=== PATIENT | male | born 1940 | race African-American/Black ===

== ENCOUNTER 2017-03-14 04:13 | Emergency (ER) | payer OTHER ==
[~2017-03-14] VITALS: Ht 185.4 cm; Wt 113.4 kg
[~2017-03-14 04:13] MED LIST: ASPIRIN EC81 M1; FISH OIL 1,001000 M1 PO; LISINOPRIL20 MG PO; NIACIN 500 MG500 M1 PO; VITAMIN D400 UNI1 PO
[2017-03-14] MEDS ORDERED: VALIUM5 MG PO (05:31)
[2017-03-14] MEDS ORDERED: NORCO 5-325 TA1 EACH PO (05:31)
[2017-03-14 06:01] VITALS: BP 156/74
== END 2017-03-14 06:02 | disposition home or self-care (01) ==
LOC: ER 04:13
DX: M54.41 Lumbago with sciatica, right side (principal); I10 Essential (primary) hypertension; I25.2 Old myocardial infarction; Z95.5 Presence of coronary angioplasty implant and graft; Z86.79 Personal history of other diseases of the circulatory system

== ENCOUNTER 2017-07-22 18:21 | Inpatient (IN) | payer OTHER ==
[~2017-07-22] VITALS: Ht 154.9 cm; Wt 104.3 kg
--- NOTE | ~2017-07-22 | EKG ---
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
--- NOTE | ~2017-07-22 | 2DMMODE ---
[facility] [address] [place] [address] 2 D/M-MODE ECHOCARDIOGRAM Name: CANDELARIA DSOUZA JR Room #: 459-P [facility] IN .R.#: [id number] Admission: 07/22/17 Attend Phys: Vel Gil, Discharge: Date of : 44 Date of Service: 07/23/17 0924 Report #: [id number] THIS REPORT FOR: //name// APPROVED REPORT Study performed: 07/23/2017 08:31:49 EXAM: Comprehensive 2D, Doppler, and color-flow Echocardiogram Patient Location: Echo lab Room #: [facility] Status: routine BSA: 2.28 BP: 150/74 mmHg Other Information Study Quality: Adequate Indications CVA/TIA CAD Hypertension/HDD Echo Enhancing Agent Indication: Rule out Shunt Agent(s) / Amount(s) Used: Agitated Saline 8 cc 2D Dimensions RVDd: 31.83 mm LVEF(%): 61.96 (>50%) IVSd: 14.84 (7-11mm) LVOT Diam: 20.65 (18-24mm) LVDd: 44.49 mm PWd: 14.25 (7-11mm) Ascending Ao: 28.54 (22-36mm) LVDs: 29.73 (25-40mm) Aortic Root: 31.61 mm IVC: 15.00 mm Tipton's LVEF: 61.96 % Volumes Left Atrial Volume (Systole) Single Plane 4CH: 52.13 mL Single Plane 2CH: 73.71 mL LA ESV Index: 30.00 mL/m2 Aortic Valve AoV Peak Paolo.: 1.33 m/s AO Peak Gr.: 7.03 mmHg [facility] [address] [address] 2 D/M-MODE ECHOCARDIOGRAM Name: MEETCANDELARIA Room #: 459-P [facility] IN [facility].#: [id number] Admission: 07/22/17 Attend Phys: Vel Gil, Discharge: Date of : 44 Date of Service: 07/23/17 0924 Report #: [id number] Mitral Valve E/A Ratio: 0.9 MV Decel. Time: 280.79 ms MV E Max Paolo.: 0.70 m/s MV A Paolo.: 0.82 m/s MV PHT: 81.43 ms IVRT: 141.87 ms Pulmonary Valve PV Peak Paolo.: 0.94 m/s PV Peak Gr.: 3.53 mmHg Pulmonary Vein P Vein S: 0.52 m/s P Vein A: 0.29 m/s P Vein D: 0.42 m/s P Vein A Dur.: 96.9 msec P Vein S/D Ratio: 1.24 Tricuspid Valve RAP Estimate: 5.00 mmHg Left Ventricle The left ventricle is normal size. Moderate concentric left ventricular hypertrophy. The left ventricular systolic function is normal. The left ventricular ejection fraction is within the normal range. LVEF is 60%. Mild diastolic dysfunction is present (impaired relaxation pattern). Right Ventricle The right ventricle is normal size. The right ventricular systolic function is normal. Atria Left atrium is mildly dilated. Injection of bubbles documented no interatrial shunt. Right atrium is at the upper limits of normal. Aortic Valve The aortic valve is normal in structure. Trace aortic regurgitation. There is no aortic valvular stenosis. Mitral Valve The mitral valve is normal in structure. Trace to mild mitral regurgitation. No evidence of mitral valve stenosis. Tricuspid Valve The tricuspid valve is normal in structure. Trace tricuspid regurgitation. Unable to assess PA pressure. [facility] [address] [place] [address] 2 D/M-MODE ECHOCARDIOGRAM Name: MEETCANDELARIA Room #: 459-P [facility] IN .R.#: [id number] Admission: 07/22/17 Attend Phys: Vel Gil, Discharge: Date of : 42 Date of Service: 07/23/17 0924 Report #: [id number] Pulmonic Valve The pulmonary valve is normal in structure. Mild pulmonic regurgitation. Great Vessels The aortic root is normal in size. IVC is normal in size and collapses >50% with inspiration. <Conclusion> The left ventricle is normal size. LVEF is 60%. Left atrium is mildly dilated. Injection of bubbles documented no interatrial shunt. Right atrium is at the upper limits of normal. The aortic valve is normal in structure. Trace aortic regurgitation. The mitral valve is normal in structure. Trace to mild mitral regurgitation. The tricuspid valve is normal in structure. Trace tricuspid regurgitation. Unable to assess PA pressure. The pulmonary valve is normal in structure. Mild pulmonic regurgitation. <ELECTRONICALLY SIGNED> By: Hany Garcia MD 07/23/17923 3 3 Hany Garcia MD /INF
[~2017-07-22 18:21] MED LIST changes: -ASPIRIN EC81 M1; +ASPIRIN EC81 M1 PO; +NORCO 5-325 TA1 EACH PO; +VALIUM5 MG PO; +VITAMIN D1000 UNI1 PO; -VITAMIN D400 UNI1 PO
[2017-07-22 18:25] VITALS: BP 189/77
[2017-07-22 18:49] LABS: ABSOLUTE NEUTROPHILS 4.4 thou/uL (1.4-8.2); EOSINOPHILS 3.1 % (0.0-3.0); HEMATOCRIT 44.2 % (42.0-52.0); HEMOGLOBIN 14.3 gm/dL (14.0-18.0); LYMPHOCYTES 39.5 % (24.0-44.0); MCH 27.5 pg (26.0-34.0); MCHC 32.5 g/dL (28.0-37.0); MCV 84.7 fL (80.0-100.0); MONOCYTES 6.8 % (1.0-8.0); PLATELET COUNT 219 thou/uL (150-400); POLYS 49.6 % (36.0-66.0); RBC 5.22 mil/uL (4.50-6.00); RDW 15.1 % (10.5-14.5); WBC 8.8 thou/uL (4.0-11.0)
[2017-07-22 18:51] LABS: MANUAL DIFF NO
[2017-07-22 18:57] LABS: ANION GAP 7 mmol/L (7-16); BUN 20 mg/dL (7-18); CALCIUM 8.8 mg/dL (8.5-10.1); CHLORIDE 106 mmol/L (98-107); CO2 26 mmol/L (21-32); CREATININE 1.6 mg/dL (0.7-1.3); GLUCOSE 114 mg/dL (74-106); POTASSIUM 4.2 mmol/L (3.5-5.1); SODIUM 139 mmol/L (136-145)
[2017-07-22 19:03] LABS: APTT 25.6 Seconds (24.5-32.8); PROTIME 10.1 Seconds (9.3-11.4)
[2017-07-22 19:05] LABS: ALBUMIN 3.6 g/dL (3.4-5.0); ALKALINE PHOSPHATASE 119 U/L (46-116); MAGNESIUM 2.2 mg/dL (1.8-2.4); SGOT 18 U/L (15-37); SGPT 19 U/L (30-65); TOTAL BILIRUBIN 0.3 mg/dL (<0.1-1.0); TOTAL PROTEIN 7.7 g/dL (6.4-8.2); TROPONIN-I < 0.04 ng/mL (<0.04-0.07)
[2017-07-22] MEDS ORDERED: PLAVIX 75 MG TA75 M1 PO (19:11)
[2017-07-22] MEDS ORDERED: POTASSIUM20 PO (19:11)
[2017-07-22] MEDS ORDERED: REPATHA SY140 MG/1 M SUBQ (19:11)
[2017-07-22] MEDS ORDERED: CO Q-10100 MG PO (19:12)
[2017-07-22] MEDS ORDERED: VITAMIN B-12500 MCG PO (19:13)
[2017-07-22] MEDS ORDERED: VITAMIN B COMP1 EACH PO (19:13)
[2017-07-22 20:33] LABS: CHOLESTEROL 180 mg/dL (<200); HDL CHOLESTEROL 32 mg/dL (>40); LDL CHOLESTEROL 103 mg/dL (<100); TC:HDL 5.6 Ratio (Not establshd); TRIGLYCERIDE 228 mg/dL (<150); VLDL 46 mg/dL (<40)
[2017-07-22 21:30] VITALS: BP 163/82
[2017-07-22 21:32] LABS: TSH 2.041 uIU/mL (0.358-3.740)
[2017-07-22 21:52] VITALS: BP 178/83
[2017-07-23] VITALS: BP 160/75
[2017-07-23 05:40] VITALS: BP 147/70
[2017-07-23 06:34] LABS: HEMATOCRIT 41.2 % (42.0-52.0); HEMOGLOBIN 13.2 gm/dL (14.0-18.0); MCH 27.3 pg (26.0-34.0); MCHC 31.9 g/dL (28.0-37.0); MCV 85.4 fL (80.0-100.0); RBC 4.82 mil/uL (4.50-6.00); RDW 14.9 % (10.5-14.5)
[2017-07-23 06:43] LABS: CALCIUM 8.2 mg/dL (8.5-10.1); CREATININE 1.2 mg/dL (0.7-1.3); POTASSIUM 3.5 mmol/L (3.5-5.1)
[2017-07-23 07:31] VITALS: BP 150/74
[2017-07-23 10:07] LABS: FREE T4 1.02 ng/dL (0.82-1.77)
[2017-07-23 16:42] VITALS: BP 150/74
[2017-07-24 05:11] LABS: GLYCOHEMOGLOBIN (HGB A1C) 5.6 % (4.8-5.6)
== END 2017-07-23 18:03 | disposition home or self-care (01) | DRG 391 ==
LOC: ER 18:21 → EROBS 19:17 → 4W 19:17
PROVIDERS: Emergency Medicine; Nurse Practitioner Family; Psychiatry & Neurology Neurology
DX: K57.32 Diverticulitis of large intestine without perforation or abscess without bleeding (principal); N17.0 Acute kidney failure with tubular necrosis; I10 Essential (primary) hypertension; I25.10 Atherosclerotic heart disease of native coronary artery without angina pectoris; G89.29 Other chronic pain; M54.9 Dorsalgia, unspecified; E78.5 Hyperlipidemia, unspecified; I25.2 Old myocardial infarction; Z95.5 Presence of coronary angioplasty implant and graft; Z82.49 Family history of ischemic heart disease and other diseases of the circulatory system
CPT/HCPCS: 10045

== ENCOUNTER 2017-07-24 22:18 | Inpatient (IN) | payer OTHER ==
[~2017-07-24] VITALS: Ht 185.4 cm; Wt 107.5 kg
--- NOTE | ~2017-07-24 | TEE ---
[facility] [address] [place] [address] TRANSESOPHAGEAL ECHOCARDIOGRAM Name: CANDELARIA DSOUZA Room #: 463-P [facility] IN .R.#: [id number] Admission: 07/25/17 Attend Phys: Aniceto Ramirez, Discharge: Date of : 42 Date of Service: 07/26/17912 Report #: [id number] THIS REPORT FOR: //name// APPROVED REPORT Study performed: 07/26/2017 07:57:05 EXAM: Comprehensive 2D, Doppler, and color-flow Echocardiogram Patient Location: holding Room #: 9 BSA: 2.29 HR: 83 bpm BP: 156/55 mmHg Other Information Study Quality: Excellent Indications CVA/TIA Echo Enhancing Agent Indication: Rule out Shunt Agent(s) / Amount(s) Used: Agitated Saline 7 cc Procedure After obtaining informed consent, patient underwent transesophageal echo in the [facility]. Type of Sedation : Conscious Sedation Sedation was administered by Jaye Kan RN. Sedation start time: 802 Case end Time: 809 Versed (4 mg) Fentanyl (25 mcg) Transesophageal probe was inserted and advanced into esophagus without difficulty by Dameon Abreu MD, FACC. Echo enhancement indication: R/O Septal defect. Echo enhancement agent administered: Agitated Saline The MOUNIKA was performed without complications. Throughout the procedure, the blood pressure, pulse oximetry, cardiac rhythm, and rate were monitored. The patient tolerated the procedure without adverse effects. Recovery from conscious sedation was uneventful and vital signs were stable. Left Ventricle The left ventricle is normal size. There is normal LV segmental wall [facility] [address] [place] [address] TRANSESOPHAGEAL ECHOCARDIOGRAM Name: MEETCANDELARIA Room #: 463-P [facility] IN [facility]#: [id number] Admission: 07/25/17 Attend Phys: Aniceto Ramirez, Discharge: Date of : 42 Date of Service: 07/26/17 0913 Report #: [id number] motion. Moderate concentric left ventricular hypertrophy. The left ventricular systolic function is normal. The left ventricular ejection fraction is within the normal range. no thrombus or smoke in LV or JESUS LVEF is 60%. Right Ventricle The right ventricle is normal size. The right ventricular systolic function is normal. Atria Left atrium is dilated. negative bubble contrast study for ASD, PFO, negative with cough Right atrium is at the upper limits of normal. Aortic Valve The aortic valve is normal in structure. No aortic regurgitation is present. none There is no aortic valvular stenosis. Mitral Valve The mitral valve is normal in structure. Mild mitral regurgitation. none No evidence of mitral valve stenosis. Tricuspid Valve The tricuspid valve is normal in structure. There is trace to mild tricuspid regurgitation. none Pulmonic Valve The pulmonary valve is normal in structure. There is no pulmonic valvular regurgitation. none Great Vessels The aortic root is normal in size. there is moderate calcified aortic debris IVC is normal in size and collapses >50% with inspiration. Pericardium There is no pericardial effusion. <Conclusion> no thrombus or smoke in LV or JESUS There is normal LV segmental wall motion. LVEF is 60%. Left atrium is dilated. There is no aortic valvular stenosis. No aortic regurgitation is present. [facility] [place] [address] TRANSESOPHAGEAL ECHOCARDIOGRAM Name: MEETCANDELARIA Room #: 463-P [facility] IN M.R.#: [id number] Admission: 07/25/17 Attend Phys: Aniceto Ramirez, Discharge: Date of : 42 Date of Service: 07/26/17912 Report #: [id number] there is moderate calcified aortic debris negative bubble contrast study for ASD, PFO, negative with cough <ELECTRONICALLY SIGNED> By: Dameon Abreu MD, FACC 07/26/17912 2 2 Dameon Abreu MD, FACC /INF
--- NOTE | ~2017-07-24 | EKG ---
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[place] : 1940 Requested By: Colin Garza Order Number: [id number] MD: Huber Ramirez Measurements Intervals [place] Rate: 72 P: 35 VT: 164 QRS: 6 QRSD: 92 T: 29 QT: 417 QTc: 457 Interpretive Statements Sinus rhythm Abnormal R-wave progression, early transition Compared to ECG 07/22/2017 18:59:14 Repolarization abnormality is less pronounced Electronically Signed On 07-25-2017 8:12:06 CDT by Huber Ramirez [email or web address] <ELECTRONICALLY SIGNED> By: Huber Ramirez MD, [facility] 07/25/17 0812 2245 2245 Huber Ramirez MD, [facility] /EPI
[~2017-07-24 22:18] MED LIST changes: +CO Q-10100 MG PO; +PLAVIX 75 MG TA75 M1 PO; +POTASSIUM20 PO; +REPATHA SY140 MG/1 M SUBQ; +VITAMIN B COMP1 EACH PO; +VITAMIN B-12500 MCG PO
[2017-07-24 22:19] VITALS: BP 209/98
[2017-07-24 23:15] LABS: HEMATOCRIT 42.4 % (42.0-52.0); MCH 27.7 pg (26.0-34.0); MCHC 32.9 g/dL (28.0-37.0); RBC 5.05 mil/uL (4.50-6.00); RDW 15.1 % (10.5-14.5); WBC 8.2 thou/uL (4.0-11.0)
[2017-07-24 23:22] LABS: ANION GAP 7 mmol/L (7-16); BUN 22 mg/dL (7-18); CALCIUM 8.6 mg/dL (8.5-10.1); CHLORIDE 107 mmol/L (98-107); CO2 26 mmol/L (21-32); CREATININE 1.6 mg/dL (0.7-1.3); GLUCOSE 108 mg/dL (74-106); POTASSIUM 4.1 mmol/L (3.5-5.1); SODIUM 140 mmol/L (136-145)
[2017-07-24 23:30] LABS: TROPONIN-I < 0.04 ng/mL (<0.04-0.07)
[2017-07-25 03:28] VITALS: BP 137/71
[2017-07-25 04:20] VITALS: BP 166/96
[2017-07-25 08:57] VITALS: BP 132/76
[2017-07-25 12:20] VITALS: BP 147/78
[2017-07-25 20:43] VITALS: BP 154/82
[2017-07-26 05:20] VITALS: BP 161/82
[2017-07-26 10:02] VITALS: BP 140/68
[2017-07-26 10:45] LABS: HEMOGLOBIN 13.6 gm/dL (14.0-18.0); MCH 27.2 pg (26.0-34.0); MCHC 32.3 g/dL (28.0-37.0); MCV 84.3 fL (80.0-100.0); RBC 4.99 mil/uL (4.50-6.00); RDW 15.1 % (10.5-14.5); WBC 7.3 thou/uL (4.0-11.0)
[2017-07-26 10:56] LABS: CALCIUM 8.3 mg/dL (8.5-10.1); CREATININE 1.3 mg/dL (0.7-1.3); POTASSIUM 3.5 mmol/L (3.5-5.1)
[2017-07-26 14:24] VITALS: BP 140/68
[2017-07-26] MEDS ORDERED: FLAGYL500 MG PO (15:07)
[2017-07-26] MEDS ORDERED: CIPRO500 MG PO (15:07)
[2017-07-26 15:23] VITALS: BP 140/68
== END 2017-07-26 16:17 | disposition home or self-care (01) | DRG 304 ==
LOC: ER 22:18 → EROBS 07-25 01:15 → 4W 07-25 01:15
PROVIDERS: Emergency Medicine; Internal Medicine
DX: I16.0 Hypertensive urgency (principal); N17.0 Acute kidney failure with tubular necrosis; G45.9 Transient cerebral ischemic attack, unspecified; K57.92 Diverticulitis of intestine, part unspecified, without perforation or abscess without bleeding; I10 Essential (primary) hypertension; I25.10 Atherosclerotic heart disease of native coronary artery without angina pectoris; E78.5 Hyperlipidemia, unspecified; G89.29 Other chronic pain; M54.9 Dorsalgia, unspecified; Z79.82 Long term (current) use of aspirin; Z79.899 Other long term (current) drug therapy; I25.2 Old myocardial infarction; Z95.5 Presence of coronary angioplasty implant and graft; Z80.3 Family history of malignant neoplasm of breast; Z82.49 Family history of ischemic heart disease and other diseases of the circulatory system; Z82.3 Family history of stroke
CPT/HCPCS: 10045

== ENCOUNTER 2020-05-31 14:32 | Inpatient (IN) | payer OTHER ==
[~2020-05-31] VITALS: Ht 185.4 cm; Wt 109.6 kg
--- NOTE | ~2020-05-31 | HC ---
[facility] [place] [address] CONSULTATION Name: CANDELARIA DSOUZA JR Room #: 250-P [facility] IN M.R.#: [id number] Admission: 05/31/20 Attend Phys: Aniceto Ramirez MD Discharge: Date of : 42 Report #: [id number] THIS REPORT FOR: cc: TRAVIS BLANCO MD, David Arenas MD, MD ~ CC: Malcolm BLANCO DATE OF SERVICE: 06/02/2020 HISTORY OF PRESENT ILLNESS: The patient is a 79-year-old right-handed -Swedish male who was admitted with dysarthria, right-sided weakness, problems with walking. CTA showed left proximal internal carotid artery stenosis, noted to be severe with waxing and waning of symptoms. Neurology was closely involved and Vascular Surgery was brought in and the patient underwent an emergent left carotid endarterectomy with patch closure on 06/01/2020. He is currently in the ICU and blood pressure is being monitored. He feels like the right side is moving well. I am seeing him in rehabilitation medicine consultation. PAST MEDICAL HISTORY: Includes hypertension, coronary artery disease, hyperlipidemia, CT on , cardiac stents x 3, chronic back pain, CVA. He notes he has had 2 prior CVAs in 2018 with involvement of the right upper extremity with overall improvement in recovery. MEDICATIONS: Please see the full medication listing. ALLERGIES: STATINS. SOCIAL HISTORY: , lives with his , [address]-mered[address] house, 1-2 steps in. The bedrooms are upstairs. His is retired. He did not utilize gait aids prior to admission. REVIEW OF SYSTEMS: No current complaints of chest pain, shortness of breath or abdominal discomfort. PHYSICAL EXAMINATION: GENERAL: He is a pleasant 79-year-old -Swedish male in no obvious distress. VITAL SIGNS: Temperature 37.1, pulse 77, respirations 22, blood pressure 150/64. He was seen in the intensive care unit. Currently has nasal prong O2 in place. HEENT: Facies appeared symmetric. EOMs are full. [facility] [address] [place] [address] CONSULTATION Name: CANDELARIA DSOUZA Room #: 250-P [facility] IN .R.#: [id number] Admission: 05/31/20 Attend Phys: Aniceto Ramirez MD Discharge: Date of : 42 Report #: [id number] NEUROLOGIC: He is conversant, follows basic commands. No obvious problems with word formation. Right upper extremity has an IV with an IV board in place, which limits the examination . He appears to have least grade 4- to 3+/5 strength of the right upper extremity and again it was somewhat difficult to fully assess. I could not detect any obvious sensation decreased with simultaneous stimulation. He has full range of motion. Strength of the left upper extremity and left lower extremity. Right lower extremity, no obvious focal weakness. He can dorsiflex both ankles. No focal sensory decrease with simultaneous stimulation. Tone appeared to be intact. He has not gotten up with therapies as of yet, but the nursing noted that when he sat on the edge of the bed he tended to have a right-sided lean. ASSESSMENT: A 79-year-old right-handed -Swedish male with the following problem list: 1. Cerebrovascular accident with severe left proximal internal carotid artery stenosis, status post left carotid endarterectomy with patch closure, 06/01/2020. 2. Right-sided weakness with some dysarthria that appears overall improved. He was noted to have some balance decrease with falling to the right per nursing. 3. Hypertension. He has been on a nicardipine drip. 4. Hyperlipidemia noted to be statin intolerant. 5. Coronary artery disease. 6. Prior history of 2 CVAs with good recovery. 7. History of myocardial infarction. 8. Cardiac stents x 3. 9. Chronic back pain. PLAN: He is currently in the ICU, being monitored closely. PT, OT and speech are to evaluate. He certainly may warrant a short acute in-hospital inpatient rehabilitation stay as he further medically stabilizes. We will need to see how he does and proceed from there. Thank you for asking us to assist in this patient's care. By: 1152 1426 David Florentino MD /PATRICIA
[~2020-05-31 14:32] MED LIST changes: +ASPIRIN325 PO; +CIPRO500 MG PO; -FISH OIL 1,001000 M1 PO; +FISH OIL 1,001000 M3 PO; +FLAGYL500 MG PO; +GEMFIBROZIL 60600 M1 PO; +LEVETIRACETAM250 MG PO; +METOPROLOL TART25 MG PO; +NORVASC10 MG PO
[2020-05-31 14:33] VITALS: BP 170/70
[2020-05-31 15:24] LABS: ABSOLUTE NEUTROPHILS 4.9 thou/uL (1.4-8.2); BASOPHILS 1.1 % (0.0-2.0); EOSINOPHILS 3.6 % (0.0-3.0); HEMOGLOBIN 14.2 gm/dL (14.0-18.0); LYMPHOCYTES 24.5 % (24.0-44.0); MCH 28.1 pg (26.0-34.0); MCHC 33.1 g/dL (28.0-37.0); MCV 84.8 fL (80.0-100.0); MONOCYTES 6.2 % (1.0-8.0); PLATELET COUNT 210 thou/uL (150-400); POLYS 64.6 % (36.0-66.0); RBC 5.07 mil/uL (4.50-6.00); RDW 15.1 % (10.5-14.5); WBC 7.6 thou/uL (4.0-11.0)
[2020-05-31 15:37] LABS: ANION GAP 9 mmol/L (7-16); APTT 23.8 Seconds (24.5-32.8); BUN 18 mg/dL (7-18); CALCIUM 8.3 mg/dL (8.5-10.1); CHLORIDE 107 mmol/L (98-107); CO2 24 mmol/L (21-32); CREATININE 1.2 mg/dL (0.7-1.3); GLUCOSE 98 mg/dL (74-106); POTASSIUM 5.8 mmol/L (3.5-5.1); PROTIME 10.6 Seconds (9.3-11.4); SODIUM 140 mmol/L (136-145)
[2020-05-31 15:48] LABS: ALBUMIN 3.6 g/dL (3.4-5.0); SGOT 38 U/L (15-37); SGPT 31 U/L (30-65); TOTAL BILIRUBIN 0.5 mg/dL (0.2-1.0); TOTAL PROTEIN 7.5 g/dL (6.4-8.2); TROPONIN-I <0.06 ng/mL (<0.06)
[2020-05-31 18:42] LABS: HEMATOCRIT 43.2 % (42.0-52.0); HEMOGLOBIN 13.9 gm/dL (14.0-18.0); MCH 27.5 pg (26.0-34.0); MCHC 32.1 g/dL (28.0-37.0); MCV 85.6 fL (80.0-100.0); RBC 5.04 mil/uL (4.50-6.00); RDW 15.1 % (10.5-14.5); WBC 8.6 thou/uL (4.0-11.0)
[2020-05-31 20:04] LABS: ALBUMIN 3.7 g/dL (3.4-5.0); TOTAL PROTEIN 7.5 g/dL (6.4-8.2)
[2020-05-31 20:24] LABS: TSH 1.248 uIU/mL (0.358-3.740)
[2020-05-31] MEDS ORDERED: ZANAFLEX4 M2 PO (21:44)
[2020-05-31] MEDS ORDERED: LISINOPRIL PO (21:46)
[2020-05-31] MEDS ORDERED: LOPRESSOR50 MG PO (21:49)
[2020-05-31] MEDS ORDERED: FLOMAX0.4 MG PO (21:50)
[2020-05-31] MEDS ORDERED: ASA81BEC PO (21:51)
[2020-05-31] MEDS ORDERED: VITAMIN B-121000 MC2 PO (21:53)
[2020-06-01] VITALS (14 sets, daily range): BP systolic 103–147; BP diastolic 41–68
[2020-06-01 00:32] LABS: HEMATOCRIT 43.3 % (42.0-52.0); HEMOGLOBIN 14.2 gm/dL (14.0-18.0); MCH 27.9 pg (26.0-34.0); MCHC 32.7 g/dL (28.0-37.0); MCV 85.3 fL (80.0-100.0); RBC 5.07 mil/uL (4.50-6.00); RDW 15.1 % (10.5-14.5); WBC 9.6 thou/uL (4.0-11.0)
[2020-06-01 00:49] LABS: CREATININE 1.2 mg/dL (0.7-1.3); MAGNESIUM 1.7 mg/dL (1.8-2.4)
[2020-06-01 00:55] LABS: POTASSIUM 3.8 mmol/L (3.5-5.1)
[2020-06-01] MEDS ORDERED: REPATHA SU140 MG/1 M SUBQ (07:25)
--- NOTE | 2020-06-01 07:40 | EKG ---
[facility] [place] [address] ELECTROCARDIOGRAM REPORT Name: CANDEALRIA DSOUZA JR Room #: 170-10 ADM IN M.R.#: [id number] Admission: 05/31/20 Attend Phys: Aniceto Ramirez MD Discharge: Date of : 42 Report #: [id number] THIS REPORT FOR: cc: TRAVIS BLANCO MD, STACY C. 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: : 1940 Requested By: Colin Garza Order Number: [id number] MD: Huber Ramirez Measurements Intervals [place] Rate: 85 P: 62 GA: 170 QRS: 27 QRSD: 90 T: 35 QT: 383 QTc: 456 Interpretive Statements Sinus rhythm Abnormal R-wave progression, early transition Compared to ECG 09/06/2017 14:51:40 Atrial premature complex(es) no longer present ST (T wave) deviation no longer present Electronically Signed On 06-01-2020 7:40:04 CDT by Huber Ramirez [email or web address] <ELECTRONICALLY SIGNED> By: Huber Ramirez MD, FAC 06/01/20 0740 1459 1459 Huber Ramirez MD, FAC /EPI
--- NOTE | 2020-06-01 14:41 | 2DMMODE ---
[facility] [address] [place] [address] 2 D/M-MODE ECHOCARDIOGRAM Name: CANDELRAIA DSOUZA Room #: 250-P ADM IN M.R.#: [id number] Admission: 05/31/20 Attend Phys: Aniceto Ramirez MD Discharge: Date of : 42 Report #: [id number] THIS REPORT FOR: cc: TRAVIS BLANCO MD, STACY C. MD Lammoglia, Francisco J. MD ~ APPROVED REPORT Study performed: 06/01/2020 13:44:54 EXAM: Comprehensive 2D, Doppler, and color-flow Echocardiogram Patient Location: ICU Room #: 250 Status: routine BSA: 2.35 HR: 62 bpm BP: 135/58 mmHg Rhythm: NSR Other Information Study Quality: Adequate Indications Stroke. Hx: CABG, Stents, CVAx2, PVD, HTN, HLP. Echo Enhancing Agent Indication: Rule out Shunt Agent(s) / Amount(s) Used: Agitated Saline 7 cc 2D Dimensions RVDd: 34.93 mm IVSd: 12.00 (7-11mm) LVOT Diam: 22.35 (18-24mm) LVDd: 44.71 mm PWd: 10.61 (7-11mm) Ascending Ao: 30.16 (22-36mm) LVDs: 32.33 (25-40mm) Aortic Root: 35.73 mm Volumes Left Atrial Volume (Systole) Single Plane 4CH: 46.65 mL Single Plane 2CH: 58.96 mL LA ESV Index: 26.00 mL/m2 Aortic Valve [facility] [address] [place] [address] 2 D/M-MODE ECHOCARDIOGRAM Name: CANDELARIA DSOUZA JR Room #: 250-P [facility] IN .R.#: [id number] Admission: 05/31/20 Attend Phys: Aniceto Ramirez, Discharge: Date of : 42 Report #: [id number] AoV Peak Paolo.: 1.44 m/s AO Peak Gr.: 8.32 mmHg LVOT Max P.22 mmHg LVOT Max V: 0.90 m/s RADHA Vmax: 2.44 cm2 Mitral Valve E/A Ratio: 0.9 MV Decel. Time: 253.97 ms MV E Max Paolo.: 0.66 m/s MV A Paolo.: 0.74 m/s MV PHT: 73.65 ms IVRT: 78.43 ms Pulmonary Valve PV Peak Paolo.: 0.84 m/s PV Peak Gr.: 2.79 mmHg Pulmonary Vein P Vein S: 0.50 m/s P Vein D: 0.40 m/s P Vein S/D Ratio: 1.25 Tricuspid Valve TR Peak Paolo.: 2.61 m/s RAP Estimate: 5.00 mmHg TR Peak Gr.: 27.30 mmHg PA Pressure: 32.00 mmHg Left Ventricle The left ventricle is normal size. There is normal LV segmental wall motion. Mild concentric left ventricular hypertrophy. Left ventricular systolic function is normal. LVEF is 60-65%. Mild diastolic dysfunction is present (impaired relaxation pattern). Right Ventricle The right ventricle is normal size. The right ventricular systolic function is normal. Atria The left atrium size is normal. No shunting noted by contrast bubble injection. The right atrium size is normal. Aortic Valve Aortic valve is mildly thickened and calcified. No aortic regurgitation is present. There is no aortic valvular stenosis. [facility] [address] [place] [address] 2 D/M-MODE ECHOCARDIOGRAM Name: CANDELARIA DSOUZA Room #: 250-P [facility] IN ..#: [id number] Admission: 05/31/20 Attend Phys: Aniceto Ramirez, Discharge: Date of : 42 Report #: [id number] Mitral Valve The mitral valve is normal in structure. Mild mitral regurgitation. Tricuspid Valve The tricuspid valve is normal in structure. Trace tricuspid regurgitation. Estimated PAP is 30-35mmHg. Pulmonic Valve The pulmonary valve is normal in structure. Mild pulmonic regurgitation. Great Vessels The aortic root is normal in size. The ascending aorta is normal in size. IVC is normal in size and collapses >50% with inspiration. Pericardium There is no pericardial effusion. <Conclusion> The left ventricle is normal size. LVEF is 60-65%. Aortic valve is mildly thickened and calcified. The mitral valve is normal in structure. Mild mitral regurgitation. The tricuspid valve is normal in structure. Trace tricuspid regurgitation. Estimated PAP is 30-35mmHg. Mild pulmonic regurgitation. There is no pericardial effusion. No shunting noted by contrast bubble injection. <ELECTRONICALLY SIGNED> By: Hany Garcia MD 06/01/20 1441 144 144 Hany Garcia MD /INF
[2020-06-01] MEDS ORDERED: VITCB500GO PO (14:43)
--- NOTE | 2020-06-01 18:41 | HC ---
[facility] [place] [address] [place] [address] CONSULTATION Name: CANDELARIA DSOUZA JR Room #: 250-P ADM IN M.R.#: [id number] Admission: 05/31/20 Attend Phys: Aniceto Ramirez MD Discharge: Date of : 42 Report #: [id number] THIS REPORT FOR: cc: TRAVIS BLANCO MD, Nathaniel Greene MD, MD ~ CC: Malcolm BLANCO DATE OF SERVICE: 05/31/2020 HISTORY OF PRESENT ILLNESS: This is a 79-year-old male patient on whom a consultation was called by Emergency Room physician, Dr. Murguia. He had mentioned that this patient had come to Emergency Room with the right sided weakness and some speech difficulty, which started yesterday. After talking to him on the phone, I came to Emergency Room and saw the patient. The provided somewhat of a confusing history. She indicated that this patient had 3 strokes. They were all on the right side. He had never had a stroke on the left side. He was diagnosed with an aneurysm. History is confusing. Apparently, the aneurysm was on the left side. He was going to a neurosurgeon at [facility] and a neurologist at [facility]. Somebody did a catheter angiogram, but other person told him not to have a catheter angiogram again. That makes the history very confusing, but the patient was on aspirin and Plavix. The patient was seen by Dr. Street, a neurologist. I pulled out those records. It looks like the patient did have strokes that time. The patient is in sinus rhythm, but I do not know what part of workup he has for any atrial fibrillation as an outpatient. He was also seen by Dr. Callaway, another neurologist around the same time. He has been on Keppra, he really does not know why he is on Keppra, but looks like he had some episodes which indicated that there may have been a stroke and that is why they started this patient, but that is a guess work, I am not sure about that. Now, this patient did have a CTA of the head and neck in 2017 and that did not show any prominent stenosis of the carotid at that time. Stenosis is less than 50%. REVIEW OF SYSTEMS: Also positive for multiple problems in this patient. This patient has a history of hypertension, coronary artery disease, hyperlipidemia. He has a history of stroke, history of pilonidal cyst, history of cardiac stents. That was a relevant 14-point review of system. PAST MEDICAL HISTORY: Positive for strokes. SOCIAL HISTORY: He is and his was here who provided most of the history. [facility] [address] [place] [address] CONSULTATION Name: MEETCANDELARIA Room #: 250-P [facility] IN M.R.#: [id number] Admission: 05/31/20 Attend Phys: Aniceto Ramirez MD Discharge: Date of : 42 Report #: [id number] PHYSICAL EXAMINATION: Indicate he is alert, he is responsive. He can follow simple command. His speech looks somewhat slurred, but the indicated it is better. He is weak on the right side, but strength is about 4/5 at least. He has intact position sense on both sides. There is no cerebellar sign. Cardiac examinations appear unremarkable. His vital signs were blood pressure 161/72, respirations 16, pulse is 75. LABORATORY DATA: Indicate a white count of 8.6. I had been asked by Emergency Room physician to get a CT angiogram done with a stroke protocol CT if the BUN and creatinine were okay, and he did for that CT angiogram. That indicated a near occlusion of the left carotid artery. IMPRESSION: This patient's symptoms appear to be consistent with ischemia from his occluded or almost occluded left internal carotid artery. The radiologist thinks it may be a thrombus. Because of that, my recommendation to the Emergency Room physician was to emergently transfer this patient to a tertiary care center like [facility] to evaluate this patient for emergent intervention. He may need an MRI, but that can be done up there. Dr. Murguia, the Emergency Room physician told me that he is already working to emergently transfer this patient to a tertiary care center and I believe that is the best route in this patient. Thank you very much for this referral, and if you have any questions, please feel free to contact me. <ELECTRONICALLY SIGNED> By: Nathaniel Olmos MD 06/01/20 1841 194 08 Nathaniel Olmos MD /nt
[2020-06-02] VITALS (17 sets, daily range): BP systolic 104–152; BP diastolic 44–62
[2020-06-02 06:06] LABS: CALCIUM 7.5 mg/dL (8.5-10.1); CREATININE 1.6 mg/dL (0.7-1.3); POTASSIUM 3.6 mmol/L (3.5-5.1)
[2020-06-02 06:08] LABS: HEMATOCRIT 40.3 % (42.0-52.0); MCH 27.6 pg (26.0-34.0); MCHC 32.3 g/dL (28.0-37.0); MCV 85.5 fL (80.0-100.0); RBC 4.72 mil/uL (4.50-6.00); RDW 15.2 % (10.5-14.5); WBC 10.3 thou/uL (4.0-11.0)
[2020-06-02 12:23] LABS: BE(vivo) -2.4 mmol/L (-2 to +3); HCO3 21.1 mmol/L (22.0-26.0); PCO2 32.5 mmHg (35.0-45.0); PO2 55.7 mmHg (80.0-100.0); sO2 90.2 % (92.0-98.0)
[2020-06-03 00:19] VITALS: BP 123/57
[2020-06-03 04:06] VITALS: BP 133/71
[2020-06-03 05:27] LABS: BE(vivo) -3.2 mmol/L (-2 to +3); HCO3 19.9 mmol/L (22.0-26.0); PCO2 29.8 mmHg (35.0-45.0); pH 7.442 (7.360-7.450); sO2 93.5 % (92.0-98.0)
[2020-06-03 07:27] VITALS: BP 117/59
[2020-06-03 11:17] VITALS: BP 113/65
[2020-06-03] MEDS ORDERED: PEPCID20 MG PO (11:39)
[2020-06-03] MEDS ORDERED: AMLODIPINE BESY10 MG PO (11:39)
[2020-06-03] MEDS ORDERED: GEMFIBROZIL 60600 M1 PO (11:46)
[2020-06-03 12:24] LABS: CALCIUM 7.9 mg/dL (8.5-10.1); CREATININE 1.4 mg/dL (0.7-1.3); POTASSIUM 3.7 mmol/L (3.5-5.1)
[2020-06-03 15:12] VITALS: BP 122/62
--- NOTE | 2020-06-03 18:06 | PATH ---
[facility] [address] [place] [address] PATHOLOGY RPT PROCEDURE Name: CHRIS AVERY Room #: 214-P [facility] IN M.R.#: [id number] Admission: 05/31/20 Date of : 42 Discharge: 06/03/20 Report #: [id number] Path Case #: [id number] L[facility] Accession Number: [id number] . 01 Material submitted: . carotid body - LEFT CAROTID ARTERY PLAQUE. Modifiers: left . 01 Clinical history: . Left carotid artery disease . 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 - Fragment of calcified atherosclerotic plaque. (IUV:pit 06/03/2020) QTP 06/03/2020 1350 Local . 02 Electronically signed: . Celi Maddox MD, Pathologist NPI- [id number] . 01 Gross description: . The specimen is received in formalin, labeled "Chris Avery Jr, left carotid artery plaque" and consists of multiple rubbery to calcified segments of yellow-gay tissue measuring 4.5 x 2.8 x 1.2 cm in aggregate. Time Piece Repairer sections are submitted in A1 following light decalcification. (SDY; 06/02/2020) SYU/SYU 06/02/2020 1747 Local . 02 Pathologist provided ICD-10: I65.22 . 02 CPT . 144210, [id number] Specimen Comment: A courtesy copy of this report has been sent to [phone], [phone] Specimen Comment: [phone], Specimen Comment: Report sent to ,DR BLANCO / DR OBRIEN Performed at: [address], [place] [id number] MD Fredrick Hoover MD Phone: [phone] Performed at: [address] [id number] MD Celi Maddox MD Phone: [phone]
--- NOTE | 2020-06-04 12:41 | HC ---
[facility] [place] [address] CONSULTATION Name: CANDELARIA DSOUZA JR Room #: 214-P [facility] IN M.R.#: [id number] Admission: 05/31/20 Attend Phys: Aniceto Ramirez MD Discharge: 06/03/20 Date of : 42 Report #: [id number] THIS REPORT FOR: cc: TRAVIS BLANCO MD, STACY C. MD Forman, John M. MD ~ CC: Malcolm BLANCO DATE OF SERVICE: 06/01/2020 We were asked by Dr. Kenneth Olmos to see the patient. HISTORY OF PRESENT ILLNESS: The patient is a 79-year-old with neurologic change. The patient came to the Emergency Department yesterday with speaking problems. The patient is able to form words, but cannot seem to find the right words and has difficulty putting speech together. He also reports having some numbness in the right lower extremity. The patient has a history of transient ischemic attacks in the past and had a carotid duplex in this institution in 2017 that showed a 50% left internal carotid stenosis, but this was not felt to be hemodynamically significant. Since the Emergency Department visit, a CT angiogram was done that shows a 99% stenosis of the proximal left internal carotid. There does appear to be flow beyond this. Also MR angiogram was done that shows normal intracranial vessels. There is some history that the patient is followed by Dr. Shay [facility] for an aneurysm, but no aneurysm was seen on either our CTA or the MRA. PAST HISTORY: Also significant for hypertension and coronary artery disease with stents placed in the past. ALLERGIES: The patient seems to be allergic to STATINS. MEDICATIONS: At home, gemfibrozil, aspirin, levetiracetam. The patient also states he is taking Plavix at home. Other medications include metoprolol, lisinopril, fish oil, Repatha, amlodipine. SOCIAL HISTORY: Tobacco history, smoker over 30 years ago. FAMILY HISTORY: Positive for hypertension. REVIEW OF SYSTEMS: CONSTITUTIONAL: Denies fever or chills. [facility] [address] [place] [address] CONSULTATION Name: CANDELARIA DSOUZA Room #: 214-P [facility] IN ..#: [id number] Admission: 05/31/20 Attend Phys: Aniceto Ramirez MD Discharge: 06/03/20 Date of : 42 Report #: [id number] EYES: Denies eye pain, visual change. HEENT: Denies sore throat, rhinorrhea. RESPIRATORY: Denies cough, shortness of breath. CARDIAC: Denies chest pain or palpitations. GASTROINTESTINAL: Denies abdominal pain, nausea, vomiting, blood. GENITOURINARY: Denies burning, frequency, urgency or blood. MUSCULOSKELETAL: Denies bone or joint pain. SKIN: Denies rash or infection. NEUROLOGIC: As mentioned right lower extremity numbness, no loss of sensation however and speech difficulty, these have waxed and waned since admission. ENDOCRINE: No goiter, no tremor. HEMATOLOGIC AND LYMPHATIC: No bruisability or bleeding. PHYSICAL EXAMINATION: VITAL SIGNS: Temperature 37.3, heart rate 60, blood pressure 135/48, O2 sat 98. HEENT: No scleral icterus. Does have arcus senilis. NECK: No mass, no bruit. CHEST: Clear to auscultation. HEART: Rhythm regular, no murmurs. ABDOMEN: Soft. EXTREMITIES: No clubbing, cyanosis or edema. NEUROLOGIC: Seems to have full motion of all 4 extremities, but claims of some numbness in the right lower extremity, has word finding difficulty, but is able to articulate properly and does answer questions appropriately as he can. ASSESSMENT: High-grade left internal carotid stenosis. I reviewed the case with Dr. Olmos who urges us to operate emergently for what he considers to be waxing and waning symptoms in the setting of a subtotal occlusion. Risks and details of surgery were discussed with the patient and his . Options and alternatives were reviewed. I agree that this is an unstable situation and there is a certain amount of risk for waiting for an elective spot and that expeditious surgery is preferred. We will arrange to proceed with left carotid endarterectomy. Thank you for the consult. <ELECTRONICALLY SIGNED> By: Malcolm Townsend MD 06/04/20 1241 [id number] 1749 Malcolm Townsend MD /nt
--- NOTE | 2020-06-04 12:41 | O ---
[facility] Sarah Burgess [facility] [place] [address] OPERATIVE REPORT Name: CANDELARIA DSOUZA JR Room #: 214-P [facility] IN M.R.#: [id number] Admission: 05/31/20 Attend Phys: Aniceto Ramirez MD Discharge: 06/03/20 Date of : 42 Report #: [id number] THIS REPORT FOR: cc: TRAVIS BLANCO MD, STACY C. MD Forman, John M. MD ~ CC: Malcolm BLANCO DATE OF SERVICE: 06/01/2020 PREOPERATIVE DIAGNOSIS: Left carotid artery stenosis, presenting with waxing and waning symptoms. POSTOPERATIVE DIAGNOSIS: Left carotid artery stenosis, presenting with waxing and waning symptoms. OPERATION: Emergency left carotid endarterectomy with patch closure. SURGEON: Malcolm Townsend MD CASTING MACHINE ADJUSTER: MARK Rice. ANESTHESIA: General. INDICATIONS FOR PROCEDURE: The patient is a 79-year-old who presents with waxing and waning stroke symptoms. The patient has a history of transient ischemic attacks and had a 50% lesion in 2017 and this has progressed to a 99% lesion and in the face of waxing and waning symptoms, our Neurology managed services sales consultant has urged us to emergently perform carotid endarterectomy. FINDINGS AND TECHNIQUE: After general anesthesia was established, an oblique left neck incision was made. Common facial vein was divided. Common internal and external carotid arteries were identified and controlled, 10,000 units of heparin were given. Continuous electroencephalographic monitoring was performed during the operation when the carotid vessels were occluded, no significant EEG changes occurred. The carotid arteriotomy was made. The endarterectomy was performed without creating a distal flap. Neointima was inspected and all loose debris was removed. The plaque was significantly friable and was the consistency of old degenerated thrombus and atheroma rather than an acute thrombus. [facility] [address] [place] [address] OPERATIVE REPORT Name: CANDELARIA DSOUZA Room #: 214-P [facility] IN Leila.#: [id number] Admission: 05/31/20 Attend Phys: Aniceto Ramirez MD Discharge: 06/03/20 Date of : 42 Report #: [id number] When the endarterectomy was deemed satisfactory, tacking sutures were placed at the transition zone and a continuous Prolene was used with a thin walled pericardial patch to close the arteriotomy. Prior to finishing the closure, the carotid vessels were backbled and the artery was irrigated with heparinized saline. Flow was established first through the external, then the internal carotid artery. Protamine was given to reverse the heparin. Hemostasis was satisfactory. A Francesco drain was brought out through the bottom pole of the incision. When hemostasis was satisfactory, the wound was closed in layers. The patient was taken to the recovery area in good condition having tolerated the procedure well. All counts reported as correct. <ELECTRONICALLY SIGNED> By: Malcolm Townsend MD 06/04/20 1241 2005 11 Malcolm Townsend MD /jena
== END 2020-06-03 15:33 | DRG 37 ==
LOC: ER 14:32 → ICU 18:33 → EROBS 18:33 → ICU 06-01 08:52 → 2N 06-02 21:05
PROVIDERS: Emergency Medicine; Hospitalist; Surgery Vascular Surgery; ADMIT Internal Medicine; ATTEND Internal Medicine
PROC: 03CN0ZZ Extirpation of Matter from Left External Carotid Artery, Open Approach (ICD-10-PCS; principal; 2020-06-01)
PROC: 03UL0KZ Supplement Left Internal Carotid Artery with Nonautologous Tissue Substitute, Open Approach (ICD-10-PCS; principal; 2020-06-01)
PROC: 03UN0KZ Supplement Left External Carotid Artery with Nonautologous Tissue Substitute, Open Approach (ICD-10-PCS; principal; 2020-06-01)
PROC: 03CL0ZZ Extirpation of Matter from Left Internal Carotid Artery, Open Approach (ICD-10-PCS; principal; 2020-06-01)
DX: I63.232 Cerebral infarction due to unspecified occlusion or stenosis of left carotid arteries (principal); J96.01 Acute respiratory failure with hypoxia; N17.9 Acute kidney failure, unspecified; G81.91 Hemiplegia, unspecified affecting right dominant side; I10 Essential (primary) hypertension; I25.10 Atherosclerotic heart disease of native coronary artery without angina pectoris; E78.5 Hyperlipidemia, unspecified; G89.29 Other chronic pain; M54.9 Dorsalgia, unspecified; R47.1 Dysarthria and anarthria; Z79.82 Long term (current) use of aspirin; Z79.899 Other long term (current) drug therapy; I25.2 Old myocardial infarction; Z95.5 Presence of coronary angioplasty implant and graft; Z88.8 Allergy status to other drugs, medicaments and biological substances; Z82.49 Family history of ischemic heart disease and other diseases of the circulatory system; Z80.3 Family history of malignant neoplasm of breast; Z82.3 Family history of stroke; Z95.1 Presence of aortocoronary bypass graft; Z20.828 Contact with and (suspected) exposure to other viral communicable diseases
CPT/HCPCS: 10078; 10081; 47375; 50101; 50386; 50417; 51301; 52279; 52287; 54118; 56524; 56526; 56528; 56534; 57254; 62110; 62900; 70005

== ENCOUNTER 2020-06-03 13:22 | Inpatient (IN) | payer OTHER ==
[~2020-06-03] VITALS: Ht 185.4 cm; Wt 111.1 kg
[~2020-06-03 13:22] MED LIST changes: +AMLODIPINE BESY10 MG PO; +ASA81BEC PO; +FLOMAX0.4 MG PO; +LISINOPRIL PO; +LOPRESSOR50 MG PO; +PEPCID20 MG PO; +REPATHA SU140 MG/1 M SUBQ; +VITAMIN B-121000 MC2 PO; +VITCB500GO PO; +ZANAFLEX4 M2 PO
--- NOTE | 2020-06-03 14:04 | NUR ---
chart review. cm consult. cm tried calling pt in room 214 to visit with him. he did not answer phone. cm called spoke with his chad via phone call. intro to cm, dcp, transition of care ie hh or dme and weekly team meeting. she reported " independent prior to hospital. live in house 1 step enter home and 13 up and down to the bedrooms. no dme prior to, has a walking stick if needed. manage his won medication. drives vehicle. 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 we thinking few weeks he has some symptoms, like diff forming sentence, and not remembering where certain streets are at while driving. he enjoys coloring and he done that since his prior stroke and is concerned wont be about to use his hand writing skills."/ chad and chart. will cont following s needed for dc needs.
--- NOTE | 2020-06-03 15:57 | NUR ---
ADMITTED TO ROOM 505. PATIENT IS ALERT AND ORIENTED X4. 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 JOHNSON'S. LUNGS ARE CLEAR AND DEMINISHED. ABD IS SOFT WITH BSX4. UP WITH ASSIST OF 1 WITH GAIT BELT AND WALKER. PATIENT HAS S.L. IN HIS RIGHT HAND AND RIGHT AC. VOIDS AGUSTÍN COLORED URINE PER URINAL. FALL AND SAFETY PROTOCOLS IN PLACE. DENIES PAIN AT THIS TIME. WILL HAVE P.T. / O.T. / S.T. EVALS TO BE DONE IN A.M. CALL LIGHT IN REACH. UP IN RECLINER. WILL CONTINUE TO MONITER.
[2020-06-03 20:15] VITALS: BP 151/58
--- NOTE | 2020-06-04 04:06 | NUR ---
ASSUMED CARE OF PT AT 1930 ON 06/03/20. PT IS A&OX4. IS SLOW TO RESPOND IN CONVERSATION. IS IMPULSIVE. DOES NOT CALL APPROPRIATELY FOR ASSISTANCE & TURNS OF CHAIR ALARM. THIS NURSE DISCUSSED THE IMPORTANCE OF FOLLOWING SAFETY MEASURES & INCREASED RISK FOR FALLS. THE PT STATED, "I DON'T NEED ANY ASSISTANCE TO THE BATHROOM. I CAN GET THERE JUST FINE ON MY OWN". THERAPUETIC COMMUNICATION ENSUED WITH PT. PT IS STABLE. DENIES PAIN. IS UP WITH SBA, GB. PT DID NOT USE A WALKER. FALL PRECAUTIONS & HOURLY ROUNDING CONTINUED THIS SHIFT. LABS & VITALS REVIEWED. CHUN DRSG TO LEFT NECK C/D/I. PT IS CURRENTLY IN BED SLEEPING CALL LIGHT WITHIN REACH. WILL CONTINUE TO MONITOR.
[2020-06-04 05:48] LABS: HEMATOCRIT 39.3 % (42.0-52.0); HEMOGLOBIN 12.8 gm/dL (14.0-18.0); MCH 27.9 pg (26.0-34.0); MCHC 32.7 g/dL (28.0-37.0); MCV 85.5 fL (80.0-100.0); RBC 4.59 mil/uL (4.50-6.00); RDW 15.3 % (10.5-14.5); WBC 7.8 thou/uL (4.0-11.0)
[2020-06-04 06:32] LABS: CREATININE 1.3 mg/dL (0.7-1.3); POTASSIUM 3.3 mmol/L (3.5-5.1)
--- NOTE | 2020-06-04 10:13 | NUR ---
Nutrition: Assessed due to consult for appetite and diet instructions. Pt new admit to rehab on 06/03. Admit for CVA w/ severe L ICA stenosis. Is s/p carotid endareterectomy on 06/01. On a heart healthy diet, with a 2500 ml fluid restriction. PMH: HTN, HLD, CAD w/ hx stents, hx CVA x2, hx AR. RD visited at breakfast prior to therapies. 1 day s/p surgery, appetite was lower as pt only completing 40-50% of meals. Pt now able to state appetite has returned and he is nearing baseline PO intake again. He had no eating concerns, or additional nutrition needs. RD did explain/encourage prioritizing protein and reviewed what meals commonly what protein sources. REC he consider add side proteins in addition to entrees like nut butter, yogurt, or cottage cheese. Also informed of Room Service menu and encouraged alternative ordering now that appetite is back up. Reviewed heart healthy diet guidelines. See RD education note. Do note low K+ at 3.3 per 06/04 labs, rec replacing. Otherwise low nutrition risk w/ return of appetite.
[2020-06-04 13:30] VITALS: BP 120/61
[2020-06-05 01:06] LABS: GLYCOHEMOGLOBIN (HGB A1C) 5.9 % (4.8-5.6)
--- NOTE | 2020-06-05 02:54 | NUR ---
Assumed care on 06/04/20 @ 19:15, seated in a chair in his room. A&Ox4, pleasant affect noted. Cooperated with assessment, HRRR, Lungs auscultated clear bilat, ABD n x 4 Q. Stands and pivots and uses a Gait belt for stability when ambulating. Compliant with medication administration. Tizanidine 4mg po prn @ 2210. Weight of 238.2 measured with a height of 6'1". in bed with bed in low position. L Carotid Anton Dressing C/D/I. Rounding done as per protocol, will continue to monitor for patient comfort and safety.
[2020-06-05 07:30] VITALS: BP 128/58
--- NOTE | 2020-06-05 08:34 | NUR ---
PT SITTING IN CHAIR IN ROOM. PT DENIES ANY PAIN. PT HAS DRESSING TO NECK THAT HAS DRY OLD BLOOD SPOT ON IT. PT DIDN'T KNOW WHEN THE DRESSING COMES OFF. IT IS A CHUN DRESSING. PT LUNGS CLEAR. DRY COUGH AND ON ROOM AIR. PT UP WITH STAND-BY ASSIST WITH GAIT BELT. NO EDEMA NOTED TO LE. PT PO IS THIN LIQUIDS AND TOLERATING WELL.
--- NOTE | 2020-06-05 16:18 | NUR ---
ASSUMED CARE AT 1400. PT IS A&OX4 AND VITAL SIGNS ARE STABLE. PT DENIES PAIN AT THIS TIME. FLUID RESTRICTION NOTED AND DISCUSSED WITH PT. CHUN DRESSING PEELING AWAY, PT REFUSED TO HAVE DRESSING REINFORCED AT THIS TIME. FALL PRECAUTIONS IN PLACE AND NURSING WILL CONTINUE TO MONITOR.
[2020-06-05 19:00] VITALS: BP 133/57
--- NOTE | 2020-06-06 00:38 | NUR ---
PATIENT'S DRESSING BEGAN TO FALL OFF THIS EVENING TO HIS LEFT LATERAL NECK. PATIENT HAD GROWN FACIAL HAIR THAT HAD CAUSED THE DRESSING TO COME LOOSE. NECK WAS SHAVED TO ALLOW BETTER ADHERENCE FOR THE DRESSING AND DRESSING WAS REINFORCED WITH TEGADERM. NOTED TO RN IN END OF SHIFT REPORT TO PLEASE ASK DR RIVERA TO ASSESS THE DRESSING TOMORROW TO ASK IF WE CAN EITHER REPLACE OR REMOVE IT. PATIENT ALSO REQUESTED THAT HIS FSBS BE REDUCED OR DC'D BECAUSE THEY HAVE BEEN CONSISTENTLY WNL. NOTE REGARDING THIS ALSO INCLUDED IN END OF SHIFT REPORT TO ASK THE MD IN AM ROUNDS LATER THIS MORNING.
[2020-06-06 07:10] VITALS: BP 131/56
--- NOTE | 2020-06-06 10:19 | NUR ---
DENIES COM-LAINTS SO FAR THIS AM. APPETITE GOOD. UP TO BATHROOM AND BEDSIDE CHAIR WITH STANDBY ASSIST AND USE OF ROLLER WALKER
--- NOTE | 2020-06-06 16:07 | NUR ---
AMBULATED IN HALLWAY WITH GAIT BELT,ROLLER WALKER,ASSIST OF PROJECT MANAGER PROCESS DEVELOPMENT-APPROX 100 FT-TOLERATES WELL-GAIT SLOW BUT STEADY WITH USE OF ASSISTIVE DEVICE. DID REPORT NO BM X 3 DAYS-ABDOOMEN SOFT-SLIGHTLY DISTENDED,BS ACTIVE X 4-DENIES NEED FOR LAXATIVE STATING "THEY TEAR ME UP" BUT DID TAKE WARMED PRUNE JUICE WITH ENCOURAGEMENT-INCREASED PO FLUIDS ENCOURAGED.
[2020-06-06 19:51] VITALS: BP 121/76
--- NOTE | 2020-06-07 04:00 | NUR ---
ASSESSMENT COMPLETED. PT IS PLEASANT. ALERT AND ORIENTED X 3, JUST SLOW IN RESPONSE. DENIES PAIN.SATTING OKAY ON ROOM AIR. CHUN DRSG TO LEFT CAROTID IS IN PLACE.I REINFORCED IT WITH TEGADERM.PT SWALLOWS MEDS OKAY, WITH THIN LIQUIDS. HE REQUIRES SBA WITH TRANSFERS. USED URINAL THE WHOLE NIGHT, GOOD U/O. NO FURTHER CONCERNS AT THIS TIME. FALL PREC IN PLACE.
[2020-06-07 07:54] VITALS: BP 113/70
--- NOTE | 2020-06-07 18:00 | NUR ---
PATIENT PARTICIPATED IN THERAPIES THROUGHOUT THE DAY, AND HAD NO C/O'S CALL PLACED TO CTS MD REQUESTING RECOMMENDATIONS REGARDING CHUN DRESSING THAT KEEPS FALLING OFF. ORDERS RECEIVED OVER TELEPHONE AND READ BACK TO REMOVE DRESSING, APPLY TRIPLE ANTIBIOTIC OINTMENT TO LOWER PORTION OF INCISION AND COVER C BIG BANDAID. THIS WAS DONE AND WAS AT BEDSIDE AND EDUCATION PROVIDED. PT INFORMED THAT HE IS ENCOURAGED TO SHOWER AND WASH AREA WITH SOAP AND WATER, DRY, AND IMMEDIATELY REDRESS WITH BIG BANDAID PER ORDERS BY MARK PIERRE. NOTED TO THAT PT'S AMIODARONE WAS HELD THIS AM DUE TO PARAMETERS.
[2020-06-07 19:50] VITALS: BP 137/70
--- NOTE | 2020-06-08 01:18 | NUR ---
PATIENT ASSESSED AND IS ALAERT X 4. SKIN WARM AND DRY. RESP EVEN AND UNLABORED.HAD A LEFT CVA BUT HAS ALMOST REGAIN HIS STRENGH ON RIGHT HAND AND LEG BACK TO ALMOST NORMAL. DRESSING DRY AND INTACT TO NECK BUT HAS A HARD TIME STAYING ON. TAPED ON. HAS NO DRAINAGE NOTED. ON ROOM AIR. 1+EDEMA NOTED. . TAKING ALL MED WHOLE WITH WATER. IS GUARD ASSIST TO BATHROOM NAD [facility] ROOM. IS VERY STEARDY ON FEET. GAIT BELT AND WALKS WELL WITH GUARDED ASSIST. IS ON A FLUID RESTRICTIONS OF 2500. HE DONT DRINK ALOT ONLY 100 DURING THE DAY. USES HIS IS WELL. ONLY MILD WEAKNESS NOTED TO RIGHT LEG AND ARM. CONT PLAN OF CARE.
[2020-06-08 08:00] VITALS: BP 126/43
--- NOTE | 2020-06-08 12:31 | NUR ---
team meeting, recommendations: mod i in room starting tomorrow then dc on 06/10/[address] out[address] pt and [address]. no driving. or family to assist with bills and pills. vendor form started and placed on chart.
--- NOTE | 2020-06-08 15:24 | NUR ---
ASSUMED CARE OF PT AT 0700. PT IS A&OX4 AND VITAL SIGNS ARE STABLE. PT DENIES PAIN AND PARTICIPATED IN SCHEDULED THERAPIES. PT MOD I IN ROOM THIS AFTERNOON. EDUCATED PT ABOUT FALL PRECAUTIONS AND INSTRUCTED TO CALL STAFF IF NEEDED. DRESSING TO LEFT NECK REMOVED AND CHANGED BY MARK ESQUIVEL. FALL PRECAUTIONS IN PLACE AND NURSING WILL CONTINUE TO MONITOR.
[2020-06-08 19:07] VITALS: BP 127/55
--- NOTE | 2020-06-09 01:40 | NUR ---
ASSESSED AT START OF SHIFT. PT SITTING UP IN CHAIR DENIES PAIN. LEFT NECK DRESSING CHANGED NOW C/D/I. EVENING MEDS GIVEN AND PT OKSANA IT WELL. UP WITH STAND BY. URINAL AT BEDSIDE. PT IN BED AND SLEPT THE REST OF THE NIGHT. FALL PREC IN PLACE AND CALL LIGHT IN REACH WILL CONT TO MONITOR.
[2020-06-09 07:36] VITALS: BP 137/62
--- NOTE | 2020-06-09 13:41 | NUR ---
ASSUMED CARES AT 0700. PT AWAKE, ALERT AND ORIENTED*4. DENIES PAIN. VITALS REMAIN STABLE. DRESSING ON LEFT CAROTID CHANGED, REMAINS INTACT AND DRY. 2500 FLUID REST. MAINTAINED. PT PARTICIPATED WELL IN ALL THERAPIES AND CONTINUES TO PROGRESS TOWARDS DC GOALS. REMAINS MOD I. IN ROOM. Q1H VISUAL CHECKS. CALL LIGHT WITHIN REACH. FALL PRECAUTIONS IN PLACE
[2020-06-09 20:15] VITALS: BP 151/76
--- NOTE | 2020-06-10 00:45 | NUR ---
PT ASSESSMENT COMPLETED AND VSS. MEDS GIVEN ORDERED AND WELL TOLERATED. FALL PRECAUTIONS IN PLACE. UP TO THE BATHROOM. STEADY. MOD I. PT EXCITED ABOUT D/C HOME TOMORROW. DRESSING ON NECK DRY AND INTACT. PT MOVING WELL FROM SIDE TO SIDE IN BED. SLEEPING WELL. WILL CONTINUE TO MONITOR FREQUENTLY.
[2020-06-10 08:00] VITALS: BP 133/65
--- NOTE | 2020-06-10 08:35 | NUR ---
CM SENT REFERRAL TO [facility] OUTPT THERAPY. PT TO DC HOME TODAY, HIS TO ASSIST WITH BILLS AND PILLS. NO DRIVING UNTIL CLEARED BY HIS DOCTOR.
[2020-06-10 08:37] VITALS: BP 151/76
[2020-06-10] MEDS ORDERED: COLACE100 MG PO (11:17)
[2020-06-10] MEDS ORDERED: ZANAFLEX4 M2 PO (11:17)
[2020-06-10] MEDS ORDERED: AMLODIPINE BESY10 MG PO (11:17)
[2020-06-10] MEDS ORDERED: MIRALAX17 GM PO (11:17)
[2020-06-10] MEDS ORDERED: PLAVIX 75 MG TA75 M1 PO (11:17)
--- NOTE | 2020-06-10 12:11 | NUR ---
ASSUMED CARE OF PT AT 0730. PT IS A&OX4. IS ON ROOM AIR. IS STABLE. DENIES PAIN IN LEFT NECK. DRSG DRY & INTACT. PT IS UP MOD I IN ROOM. AWAITING DISCHARGE. HOURLY ROUNDING CONTINUED THIS SHIFT. CALL LIGHT WITHIN REACH. PT IS UP IN RECLINER EATING LUNCH. WILL CONTINUE TO MONITOR.
[2020-06-10 12:23] VITALS: BP 151/76
--- NOTE | 2020-06-10 13:52 | NUR ---
PT WAS HAS BEEN DISCHARGED THIS AFTERNOON. DISCHARGE INSTRUCTIONS WERE DISCUSSED WITH PT & SPOUSE. PT WAS STABLE. ALL BELONGINGS WERE TAKEN WITH PT.
--- NOTE | 2020-06-11 10:06 | H ---
[facility] [place] [address] HISTORY AND PHYSICAL Name: CANDELARIA DSOUZA JR Room #: 505-P [facility] IN M.R.#: [id number] Admission: 06/03/20 Attend Phys: David Florentino MD Discharge: 06/10/20 Date of : 42 Report #: [id number] THIS REPORT FOR: cc: TRAVIS BLANCO MD, TRAVIS Florentino,David Carr MD ~ CC: David BLANCO DATE OF SERVICE: 06/03/2020 HISTORY AND PHYSICAL AND POST-ADMISSION PHYSICIAN EVALUATION HISTORY OF PRESENT ILLNESS: Please see my consult note dictation and the documented history and physical. The patient was previously admitted to [facility] with waxing and waning right-sided weakness and speech deficits. MRI confirmed a parietal lobe infarct, multiple embolic and carotid ultrasound revealed severe left internal carotid artery stenosis. He underwent an emergent endarterectomy with patch closure by Dr. Townsend on 06/01/2020. He had postop respiratory failure that resolved. He continued to have right-sided weakness and has been admitted now for acute in-hospital inpatient rehabilitation. Please see the documented past medical history, allergies, social history, and habits. MEDICATIONS: See the MAR. REVIEW OF SYSTEMS: No current complaints of chest pain, shortness of breath or abdominal discomfort. Please see the full review of systems as documented. PHYSICAL EXAMINATION: GENERAL: He is a pleasant 79-year-old -[place] male in no obvious distress. VITAL SIGNS: Temperature is as noted with 97.8, pulse 79, respirations 18, blood pressure 151/58. NEUROLOGIC: He is alert, pleasant, might have a mild depressed right nasolabial fold. HEENT: Facies otherwise appeared symmetric. CHEST: Sounded clear to auscultation. CARDIOVASCULAR: Regular rate and rhythm. ABDOMEN: Bowel sounds positive, nontender. GENITOURINARY AND RECTAL: Deferred. NECK: Revealed the dressing in place from the prior endarterectomy surgery. He appeared to be able to verbalize reasonably well. EXTREMITIES: Right upper extremity strength is less than left, probably a 4- [facility] [address] [place] [address] HISTORY AND PHYSICAL Name: CANDELARIA DSOUZA JR Room #: 505-P [facility] IN ..#: [id number] Admission: 06/03/20 Attend Phys: David Florentino MD Discharge: 06/10/20 Date of : 42 Report #: [id number] compared to 4+ on the left. He does have some mild ataxia with movement of the right upper extremity. Lower extremities, mild decreased right lower extremity 4- compared to 4/5 left lower extremity. Tone otherwise appeared to be intact. He has been min assist sit to stand. He has ambulated a short distance min assist. Needs mod assist lower body dressing. He does have apparent intact sensation to simultaneous stimulation bilateral upper and lower extremities. ASSESSMENT: 1. Cerebrovascular accident with severe left internal carotid artery stenosis, status post emergent carotid endarterectomy with patch closure, 06/01/2020. 2. Right-sided weakness. 3. Right-sided dysarthria and communication problems that appear improved. 4. Postop respiratory failure that has resolved. 5. Hypertension. 6. Coronary artery disease with history of stents x 3. 7. Hyperlipidemia. 8. Prior history of cerebrovascular accident x 2 in the past with some initial right-sided weakness that did resolve. 9. History of myocardial infarction. 10. Chronic back pain. PLAN: The patient has been admitted for acute in-hospital inpatient rehabilitation. From a postadmission physician evaluation perspective, there are no relevant changes since the preadmission screening. Please see the above review of prior and current medical and functional conditions and comorbidities. Please see the patient's previous and current functional status. As far as risk of complications, the patient has multiple medical comorbidities as noted above. Initial plan of care involves the interdisciplinary acute inpatient rehabilitation program. Goals would be for the patient to become modified independent with transfers, mobility, ADLs and improve as far as cognition, communication to return back to the home setting. Prognosis is reasonably good with estimated length of stay probably around 7-10 days. Potential barriers would include his multiple medical comorbidities and decreased functional status. The patient meets diagnostic criteria for an acute in-hospital inpatient rehabilitation stay. He meets the medical necessity criteria and we will have the consultant technology physicians involved. He does have the tolerance for therapies and has appropriate discharge goals back to the home setting. <ELECTRONICALLY SIGNED> By: David Florentino MD 06/11/20 1006 [id number] 1333 David Florentino MD /nt
--- NOTE | 2020-06-11 10:06 | PLAN ---
[facility] [place] [address] REHAB UNIT PLAN OF CARE Name: CANDELARIA DSOUZA JR Room #: 505-P [facility] IN M.R.#: [id number] Admission: 06/03/20 Attend Phys: David Florentino MD Discharge: 06/10/20 Date of : 44 Report #: [id number] THIS REPORT FOR: //name// CC: David BLANCO DATE OF SERVICE: 06/05/2020 PROGRESS NOTE/OVERALL PLAN OF CARE SUBJECTIVE: The patient was seen back earlier in followup. He was in no distress. Temperature 36.8, pulse 60, respirations 18, blood pressure 128/58. He has been cooperative with therapies. No new problems are noted. Functionally, he has been standby assist for transfers. Gait is up to 450 feet, contact guard without a device. He is working on stairs. Needing min assist. In occupational therapy, lower body dressing is min assist, upper body dressing is contact guard. He is on a regular diet with thin liquids. He has [id number] cognitive deficits with moderate memory deficits. We are continuing to work on his coordination of his right upper extremity. ASSESSMENT: 1. Cerebrovascular accident with severe left internal carotid artery stenosis, status post emergent carotid endarterectomy with patch closure, 06/01/2020. 2. Right-sided weakness. 3. Right-sided dysarthria and communication problems that appear improved. 4. Postoperative respiratory failure that has resolved. 5. Hypertension. 6. Coronary artery disease with history of stents x 3. 7. Hyperlipidemia. 8. Prior history of cerebrovascular accident x 2 in the past with some initial right sided weakness that did resolve. 9. History of myocardial infarction. 10. Chronic back pain. PLAN: The overall plan of care is based on the preadmission screen, post-admission physician evaluation and information garnered from therapy assessments. 1. Estimated length of stay is probably 7-10 days, potentially longer if needed. 2. Medical prognosis is reasonably good. 3. Anticipated interventions includes interdisciplinary acute inpatient rehabilitation program. 4. Anticipated functional outcomes would be for the patient to become modified independent with transfers, mobility, ADLs and to improve further as far as cognition as well as to improve as far as his coordination skills post-CVA. 5. Discharge destination would be back to the home setting[place] [address] REHAB UNIT PLAN OF CARE Name: CANDELARIA DSOUZA Room #: 505-P [facility] IN .R.#: [id number] Admission: 06/03/20 Attend Phys: David Florentino MD Discharge: 06/10/20 Date of : 42 Report #: [id number] his . 6. Expected therapy by discipline includes PT, OT and speech 1 hour per day each five days a week throughout the duration of the acute inpatient rehabilitation stay. <ELECTRONICALLY SIGNED> By: David Florentino MD 06/11/20 1006 1137 1914 David Florentino MD /jena
--- NOTE | 2020-06-13 12:15 | HC ---
[facility] [place] [address] CONSULTATION Name: CANDELARIA DSOUZA JR Room #: 505-P [facility] IN .R.#: [id number] Admission: 06/03/20 Attend Phys: David Florentino MD Discharge: 06/10/20 Date of : 42 Report #: [id number] THIS REPORT FOR: cc: TRAVIS BLANCO MD, STACY C. MD Deutch, Neal B. PhD ~ CC: David BLANCO DATE OF SERVICE: 06/06/2020 NEUROBEHAVIORAL STATUS EXAM ATTENDING PHYSICIAN: David Florentino M.D. PROJECTS MANAGER: Sedrick Barrios, Ph.D. CLINICAL PRESENTATION: The patient is a 79-year-old male admitted to the rehabilitation unit at [facility] for a comprehensive inpatient rehabilitation program. He was initially admitted to the hospital with a change in function. An MRI identified a parietal lobe infarction and multiple emboli. He was identified as having a severe left internal carotid artery stenosis and underwent an emergent endarterectomy with patch closure on 06/01/2020. He had a postoperative acute respiratory failure that has resolved. He continues to have right-sided weakness and was admitted for inpatient rehabilitation. His assessment on the rehabilitation unit included CVA with severe left internal carotid artery stenosis, status post carotid endarterectomy with patch closure, right-sided hemiparesis, postop respiratory failure, resolved, hypertension, hyperlipidemia, coronary artery disease, history of stents x 3, history of CVA x 2 in the past, history of [place] and chronic back pain. A complete description of his medical condition and history can be found in his medical record. Neuropsychological consultation was requested to provide assistance in the assessment of cognitive and emotional status and to provide recommendations and services. Prior to this most recent admission, he was living independently at home with his . He was independent with instrumental activities of daily living including driving. He has 3 children. The patient is a college graduate. 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 TECHNIQUES UTILIZED: Clinical interview, review of medical records, staff consultation and behavioral observation, mini mental status exam 2 standard version, brief category fluency, digits forward, digits backward and clock drawing. [facility] [address] [place] [place] [address] CONSULTATION Name: CANDELARIA DSOUZA Room #: 505-P [facility] IN [facility].#: [id number] Admission: 06/03/20 Attend Phys: David Florentino MD Discharge: 06/10/20 Date of : 42 Report #: [id number] EXAMINATION FINDINGS: The patient was alert and cooperative with the assessment. He accurately described the reason for his hospitalization. He has very slow processing speed and reduced response time. Auditory comprehension appeared satisfactory. Decreased verbal fluency is noted. He describes difficulty with memory and word finding. He does not report anxiety or depression. He also indicates sleep and appetite are within normal limits. Performance on the MMSE-2 brief version is at the 21st percentile with a T score of 42. He was 14/16. He was 3/3 for initial registration, 4/5 orientation to time and 5/[address]. He was 2/3 for immediate recall of 3 items after a brief time delay and distraction. Performance on the MMSE-2 standard version was 24/30, which is a T score of 35 and percentile rank of 7. He was 1/5 for serial 7's, 2/2 for naming, 1/1 for repetition, 3/3 for comprehension. He could read and follow a single command, write a sentence, and copy a simple geometric design. The patient was unable to accurately space the numbers on the clock suggesting visual spatial/perceptual dysfunction. Brief category fluency was extremely low with a raw score of 8, T score of 27, percentile rank of 1. Digits forward was in the average range with a T score of 15 and percentile rank of 50. Digits backward was extremely low with a T score of 20 and percentile rank of less than 1. The patient is showing severe impairment with sustained concentration and mental manipulation, likely consistent with vascular disease affecting the parietal lobe. He is alert and oriented. 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 RECOMMENDATIONS: Continue speech therapy to assist with compensatory strategies and cognitive stimulation for variability in visual spatial processing and thought integration and organization. A followup neuropsychological assessment will be of benefit to clarify the severity of cognitive deficits following his discharge and return home. The patient was driving and will require a more thorough evaluation prior to return to his return to driving. Assistance will also be necessary for medication, financial and nutritional management. [address] [address] CONSULTATION Name: CANDELARIA DSOUZA JR Room #: 505-P [facility] IN .R.#: [id number] Admission: 06/03/20 Attend Phys: David Florentino MD Discharge: 06/10/20 Date of : 42 Report #: [id number] Thank you very much for allowing me to provide the consultation on this patient. <ELECTRONICALLY SIGNED> By: Sedrick Barrios, PhD 06/13/20 1215 1752 1924 Sedrick Barrios, PhD /nt
== END 2020-06-10 13:54 | disposition home or self-care (01) | DRG 56 ==
PROVIDERS: Nurse Practitioner Family; ADMIT Physical Medicine & Rehabilitation; ATTEND Physical Medicine & Rehabilitation
DX: G81.91 Hemiplegia, unspecified affecting right dominant side (principal); I63.232 Cerebral infarction due to unspecified occlusion or stenosis of left carotid arteries; J96.00 Acute respiratory failure, unspecified whether with hypoxia or hypercapnia; N17.9 Acute kidney failure, unspecified; R47.1 Dysarthria and anarthria; I10 Essential (primary) hypertension; R41.9 Unspecified symptoms and signs involving cognitive functions and awareness; I25.10 Atherosclerotic heart disease of native coronary artery without angina pectoris; E78.5 Hyperlipidemia, unspecified; G89.29 Other chronic pain; M54.9 Dorsalgia, unspecified; E87.6 Hypokalemia; Z95.5 Presence of coronary angioplasty implant and graft; I25.2 Old myocardial infarction; Z88.8 Allergy status to other drugs, medicaments and biological substances; Z87.891 Personal history of nicotine dependence; Z82.3 Family history of stroke; Z82.49 Family history of ischemic heart disease and other diseases of the circulatory system
CPT/HCPCS: 10112

== ENCOUNTER → 2020-07-08 | Outpatient (CLI) | payer OTHER ==
[~2020-07-08] MED LIST changes: +COLACE100 MG PO; +MIRALAX17 GM PO
== END ==
LOC: SJCVC 12:12
PROVIDERS: ATTEND Internal Medicine Cardiovascular Disease
DX: I25.10 Atherosclerotic heart disease of native coronary artery without angina pectoris (principal); I65.23 Occlusion and stenosis of bilateral carotid arteries; E78.00 Pure hypercholesterolemia, unspecified; I63.9 Cerebral infarction, unspecified; Z79.899 Other long term (current) drug therapy

== ENCOUNTER 2020-07-17 11:45 | Inpatient (IN) | payer OTHER ==
[~2020-07-17] VITALS: Ht 185.4 cm; Wt 115.7 kg
[2020-07-17 12:23] VITALS: BP 141/68
[2020-07-17 12:47] LABS: ABSOLUTE NEUTROPHILS 4.1 thou/uL (1.4-8.2); BASOPHILS 0.5 % (0.0-2.0); HEMATOCRIT 40.6 % (42.0-52.0); HEMOGLOBIN 13.5 gm/dL (14.0-18.0); LYMPHOCYTES 15.9 % (24.0-44.0); MCH 27.8 pg (26.0-34.0); MCHC 33.2 g/dL (28.0-37.0); MCV 83.7 fL (80.0-100.0); PLATELET COUNT 172 thou/uL (150-400); POLYS 77.6 % (36.0-66.0); RBC 4.86 mil/uL (4.50-6.00); RDW 14.8 % (10.5-14.5); WBC 5.2 thou/uL (4.0-11.0)
[2020-07-17 12:56] LABS: ANION GAP 15 mmol/L (7-16); BUN 23 mg/dL (7-18); CALCIUM 8.5 mg/dL (8.5-10.1); CHLORIDE 101 mmol/L (98-107); CO2 23 mmol/L (21-32); CREATININE 1.6 mg/dL (0.7-1.3); GLUCOSE 117 mg/dL (74-106); POTASSIUM 3.5 mmol/L (3.5-5.1); SODIUM 139 mmol/L (136-145)
[2020-07-17 13:05] LABS: TROPONIN-I <0.06 ng/mL (<0.06)
[2020-07-17 14:53] LABS: URINE BILIRUBIN NEGATIVE (Negative); URINE BLOOD TRACE (Negative); URINE CLARITY CLEAR; URINE COLOR YELLOW; URINE GLUCOSE-RANDOM* NEGATIVE (Negative); URINE KETONES 1+ (Negative); URINE LEUKOCYTES-REFLEX NEGATIVE (Negative); URINE NITRITE-REFLEX NEGATIVE (Negative); URINE PROTEIN (DIPSTICK) 2+ (Negative)
[2020-07-17 15:11] LABS: MUCUS 4-6 Moderate strn/LPF (None Seen); SQUAMOUS 0-3 Few /LPF (0-3)
[2020-07-17 15:12] LABS: COARSE GRANULAR CASTS 0-3 Few /LPF (None Seen); URINE WBC-REFLEX 0-5 Rare /HPF (0-5)
[2020-07-17 15:13] LABS: BACTERIA-REFLEX 1-9 Few /HPF (None Seen); URINE RBC 0-2 Rare /HPF (0-2)
[2020-07-17 15:14] LABS: CRYSTALS None Seen /LPF (None Seen)
[2020-07-17 17:39] VITALS: BP 130/70
[2020-07-17 18:10] VITALS: BP 130/70
[2020-07-17 19:45] VITALS: BP 162/83
--- NOTE | 2020-07-17 23:09 | NUR ---
PT ADMITTED TO [address] [place] [address] 363 AT CHANGE OF SHIFT. VSS AFEBRILE. SAT 88% ON 2LNC. PLACED PT ON O2 2LNC. LUNGS SOUND DIMINISHED. UNLABORED ON 2L. ORIENTED PT TO . INSTRUCTED ON FALL PRECAUTIONS. BED DOWN LOW LOCKED POSITION. BED ALARM IS ON. SR ON MONITOR.
[2020-07-17 23:46] VITALS: BP 181/87
[2020-07-18 04:26] VITALS: BP 164/91
[2020-07-18 04:56] LABS: HEMOGLOBIN 13.3 gm/dL (14.0-18.0); MCH 27.3 pg (26.0-34.0); MCHC 32.4 g/dL (28.0-37.0); MCV 84.3 fL (80.0-100.0); RBC 4.87 mil/uL (4.50-6.00); RDW 14.9 % (10.5-14.5); WBC 3.5 thou/uL (4.0-11.0)
[2020-07-18 05:12] LABS: ALBUMIN 2.7 g/dL (3.4-5.0); CALCIUM 8.2 mg/dL (8.5-10.1); CREATININE 1.4 mg/dL (0.7-1.3); POTASSIUM 3.7 mmol/L (3.5-5.1); TOTAL BILIRUBIN 0.4 mg/dL (0.2-1.0); TOTAL PROTEIN 7.3 g/dL (6.4-8.2)
[2020-07-18 08:18] VITALS: BP 156/74
--- NOTE | 2020-07-18 10:30 | HC ---
[facility] [place] [address] CONSULTATION Name: CANDELARIA DSOUZA JR Room #: 363-P [facility] IN M.R.#: [id number] Admission: 07/17/20 Attend Phys: Darian Beth MD Discharge: Date of : 42 Report #: [id number] THIS REPORT FOR: cc: SRAVANTHI - Sarah family physician/PCP SRAVANTHI - No family physician/PCP Florentino Mccarty MD ~ CC: Darian Beth FAM physician/PCP DATE OF SERVICE: 07/18/2020 INFECTIOUS DISEASE CONSULTATION ATTENDING PHYSICIAN: Dr. Beth. REASON FOR EVALUATION: COVID-19 infection, complicated by respiratory compromise. HISTORY OF PRESENT ILLNESS: Chart reviewed, patient examined. This is a 79-year-old gentleman admitted through the Emergency Room, had been now confirmed to be COVID positive about 6 days ago. He had generally been doing fairly well; however, developed more dyspnea as well as a cough that was somewhat productive, did have some chills, admitted to some nausea as well, has had some constipation. He did lose a sense of taste, smell with poor p.o. intake. Evaluation confirmed positive COVID testing. His procalcitonin was elevated at 89.73. Lactic acid of 1.3. Chest x-ray was fairly unremarkable; however, the CT did show changes. There is question of COVID-19 infection. He was found to be lymphocytopenic as well. Blood cultures collected at time of admission are negative thus far. Empirically placed on therapy with ceftriaxone, azithromycin, methylprednisolone, has been given a dose of levofloxacin as well. He is generally lucid at this point. ALLERGIES: STATINS. CURRENT MEDICATIONS: Include amlodipine, clopidogrel, aspirin, tamsulosin, ceftriaxone, azithromycin, methylprednisolone, metoprolol, ipratropium and albuterol inhaler, enoxaparin. PAST MEDICAL HISTORY: As noted above, hypertension, has known vasculopathy, coronary artery disease, hyperlipidemia, previous acute myocardial infarction with stents, chronic back pain, previous stroke. SOCIAL HISTORY: Former smoker. No ethanol. No illicit drug use. FAMILY HISTORY: Noncontributory. [facility] [address] [place] [address] CONSULTATION Name: MEETCANDELARIA JR Room #: 363-P [facility] IN ..#: [id number] Admission: 07/17/20 Attend Phys: Darian Beth MD Discharge: Date of : 42 Report #: [id number] REVIEW OF SYSTEMS: Otherwise, unremarkable. PHYSICAL EXAMINATION: GENERAL: He appears ill, not overtly toxic. He is lucid. VITAL SIGNS: Temperature 97.8, pulse 87, respirations 18, blood pressure 156/74, saturation 93% on 2 liters nasal oxygen. HEENT: Normocephalic. Extraocular muscles intact. NECK: Supple. LUNGS: Scattered coarse breath sounds. HEART: Regular. I do not appreciate a murmur. ABDOMEN: Soft, mildly distended. There are no overt peritoneal signs. GENITOURINARY AND RECTAL: Deferred. LABORATORY DATA: Initial CBC: White count of 5.2, H and H 13.5 and 40.6, platelet count of 172. Electrolytes: Sodium 139, potassium 3.5, chloride 101, bicarbonate is 23, anion gap of 15, BUN and creatinine 23 and 1.6, glucose of 117. Procalcitonin elevated at 89.73. Urinalysis, 0-5 white cells. CTA chest PE protocol showed no evidence of PE or aortic dissection, multifocal ground glass density extensive in the lungs, predominantly peripheral aspect of the upper lobes and bases. Liver functions are abnormal with AST of 295, ALT of 277. Blood cultures are sterile thus far. ASSESSMENT: COVID-19 infection, symptomatic for the last 5-6 days, clearly he appears to be ill. It is reasonable to start remdesivir given his hypoxemia as well as convalescent plasma transfusion. He has got this elevated procalcitonin, elevated liver function tests questions additional complications such as early sepsis. We will adjust antimicrobial therapy. We will check an urine ultrasound, will get some inflammatory markers. He remains quite tenuous at this point. We will follow. <ELECTRONICALLY SIGNED> By: Florentino Mccarty MD 07/18/20 1030 1003 1023 Florentino Mccarty MD /nt
[2020-07-18 11:34] VITALS: BP 134/68
--- NOTE | 2020-07-18 14:11 | NUR ---
ASSUMED PATIENT CARE THIS AM AT APPROXIMATELY 0700. PATIENT IS AWAKE ALERT ORIENTED X4, SLOW TO RESPOND VERBALLY SECONDARY TO STROKE. PATIENT O2 SAT STABLE ON 2LNC. ID CONSULT TO SEE PATIENT TODAY, REMDESIVIR AND CONVALESCENT PLASMA ORDERED. PATIENT STATES UNDERSTANDING OF INDICATION AND AGGREEABLE TO TREATMENT, CALLED PATIENT DAUGHTER DIANE TO MAKE AWARE OF PLAN OF CARE. ALL QUESTIONS ANSWERED AT THIS TIME.
[2020-07-18 15:46] VITALS: BP 127/65
[2020-07-18 16:32] VITALS: BP 125/99; BP 145/76
[2020-07-18 20:18] VITALS: BP 156/80
[2020-07-19 03:06] VITALS: BP 167/83
--- NOTE | 2020-07-19 03:36 | NUR ---
Patient making slow progress towards outcome goals.xygenation optimal witj 1L/NC, short of air with activity. High fall risks, fall preacutions in place. IVFluids infusing. Denies pain. Rhythm stable.
[2020-07-19 06:16] LABS: HEMATOCRIT 39.3 % (42.0-52.0); HEMOGLOBIN 12.7 gm/dL (14.0-18.0); MCH 27.1 pg (26.0-34.0); MCHC 32.2 g/dL (28.0-37.0); MCV 84.2 fL (80.0-100.0); RBC 4.67 mil/uL (4.50-6.00); RDW 15.2 % (10.5-14.5); WBC 9.8 thou/uL (4.0-11.0)
[2020-07-19 06:24] LABS: CALCIUM 8.2 mg/dL (8.5-10.1); CREATININE 1.3 mg/dL (0.7-1.3); MAGNESIUM 1.9 mg/dL (1.8-2.4); POTASSIUM 3.1 mmol/L (3.5-5.1)
[2020-07-19 07:54] VITALS: BP 148/68
--- NOTE | 2020-07-19 08:07 | EKG ---
[facility] [place] [address] ELECTROCARDIOGRAM REPORT Name: CANDELARIA DSOUZA JR Room #: 363-P [facility] IN M.R.#: [id number] Admission: 07/17/20 Attend Phys: Darian Beth MD Discharge: Date of : 42 Report #: [id number] THIS REPORT FOR: cc: SRAVANTHI - No family physician/PCP SRAVANTHI - No family physician/PCP David Claros MD ~ THIS REPORT FOR: //name// [facility] ED Test Date: 2020-07-17 Test Time: 12:35:55 Pat Name: CANDELARIA DSOUZA Department: Room: [facility] Gender: M [employer] Land[employer] Technician: jesse : 1940 Requested By: Yasir Buchanan Order Number: [id number] MD: David Claros Measurements Intervals [place] Rate: 89 P: 55 DC: 149 QRS: 33 QRSD: 83 T: 26 QT: 378 QTc: 460 Interpretive Statements Sinus rhythm Abnormal R-wave progression, early transition Compared to ECG 05/31/2020 14:59:50 No significant changes Electronically Signed On 07-19-2020 8:07:27 CDT by David Claros [email or web address] <ELECTRONICALLY SIGNED> By: David Claros MD 07/19/20 0807 1235 1235 David Claros MD /EPI
[2020-07-19 12:16] VITALS: BP 156/80
--- NOTE | 2020-07-19 15:53 | NUR ---
ASSUMED CARE APPROX 0700. PT ALERT AND ORIENTED X4. ASSESSMENTS CHARTED AND VSS. AFEBRILE THIS SHIFT. SR ON TELE MONITOR. K+ ORDERED IVPB BY DR. CARRILLO. CONTACTED DR. CARRILLO TO GET CHANGED TO TABLETS. OK PER DR. CARRILLO. PT'S DTR, DIANE, UPDATED ON PT'S STATUS. PT DENIES ACUTE PAIN. PT DENIES CHEST PAIN. PT SLOWLY PROGRESSING TOWARDS PLAN OF CARE GOALS. WILL CONTINUE TO MONITOR.
[2020-07-19 15:56] VITALS: BP 159/76
[2020-07-19 20:37] VITALS: BP 142/66
--- NOTE | 2020-07-20 03:02 | NUR ---
PT IV SITE INFILTRATED ON RIGHT HAND. REMOVED AND CLEANED IV SITE AND DRESSED WITH 1X1 AND BAND-AID.
[2020-07-20 05:30] VITALS: BP 130/66
[2020-07-20 06:39] LABS: ABSOLUTE NEUTROPHILS 6.5 thou/uL (1.4-8.2); BASOPHILS 0.1 % (0.0-2.0); HEMATOCRIT 37.3 % (42.0-52.0); LYMPHOCYTES 6.7 % (24.0-44.0); MCH 27.1 pg (26.0-34.0); MCHC 32.3 g/dL (28.0-37.0); MCV 84.2 fL (80.0-100.0); MONOCYTES 6.2 % (1.0-8.0); PLATELET COUNT 215 thou/uL (150-400); RBC 4.44 mil/uL (4.50-6.00); WBC 7.4 thou/uL (4.0-11.0)
--- NOTE | 2020-07-20 06:46 | NUR ---
FOLLOWING POC WITH IVF AND IVPB ANTIBIOTICS. PT ON 1L NC, AND BECOMES SOA FROM CHAIR TO BED. GOOD URINE OUTPUT OVERNIGHT, VSS, TELE SHOWS SR. PT HAS NO COMPLAINTS.
[2020-07-20 06:49] LABS: CALCIUM 7.7 mg/dL (8.5-10.1); CREATININE 1.2 mg/dL (0.7-1.3); MAGNESIUM 2.1 mg/dL (1.8-2.4); POTASSIUM 3.3 mmol/L (3.5-5.1)
[2020-07-20 06:55] LABS: ALBUMIN 2.6 g/dL (3.4-5.0); CALCIUM 7.9 mg/dL (8.5-10.1); CREATININE 1.2 mg/dL (0.7-1.3); POTASSIUM 3.2 mmol/L (3.5-5.1); TOTAL BILIRUBIN 0.6 mg/dL (0.2-1.0); TOTAL PROTEIN 6.7 g/dL (6.4-8.2)
[2020-07-20 07:50] VITALS: BP 143/65
--- NOTE | 2020-07-20 11:29 | NUR ---
INITIAL ASSESSMENT: Received consult. SW reviewed chart and spoke with nursing and attending physician. Pt was admitted from home due to respiratory distress. Pt placed in Enhanced Isolation due to COVID-19. Pt is afebrile and on 3L of O2. Pt is on IV abx and IV steroids. PT has had convelescent plasma. Pt may start course of Remdesivir. SW spoke with pt via phone. Introduced role of SW. Pt is alert/orientated and reports he lives at home with his . Pt was recently on 5N for inpt acute rehab and discharged home on 06/10 with outpatient therapy. Pt states he has a walker. Pt's PCP is Dr. Michelle Joya at [facility]. Pt's goal is to return home when medically stable. Therapy ordered to evaluate pt for discharge needs. SW is following to assist as needed with discharge planning.
[2020-07-20 11:32] VITALS: BP 135/67
--- NOTE | 2020-07-20 14:55 | NUR ---
ASSUMED PATIENT CARE THIS SHIFT AT APPROXIMATELY 0700. PATIENT IS AWAKE ALERT ORIENTED, NO ACUTE DISTRESS NOTED THIS AM. PATIENT TOLERATING MEDS AND ASSESSMENTS CHARTED. PATIENT UP TO BEDSIDE CHAIR FOR MAJORITY OF THE SHIFT, STATES THAT HE FEELS BETTER SITTING UP IN CHAIR RATHER THAN BEING IN BED. O2 SAT STABLE ON 3LNC. TOLERATING DIET WITHOUT NAUSEA/ VOMITING BUT APETITE REMAINS POOR. ENCOURAGE SNACKS THROUGHOUT THE DAY.
[2020-07-20 15:19] VITALS: BP 140/73
[2020-07-20 19:22] VITALS: BP 148/68
[2020-07-21 04:09] VITALS: BP 149/77
[2020-07-21 05:48] LABS: HEMATOCRIT 36.3 % (42.0-52.0); HEMOGLOBIN 11.7 gm/dL (14.0-18.0); MCH 27.1 pg (26.0-34.0); MCHC 32.1 g/dL (28.0-37.0); MCV 84.4 fL (80.0-100.0); RBC 4.3 mil/uL (4.50-6.00); RDW 14.7 % (10.5-14.5); WBC 7.5 thou/uL (4.0-11.0)
[2020-07-21 06:00] LABS: CALCIUM 8.1 mg/dL (8.5-10.1); MAGNESIUM 2.2 mg/dL (1.8-2.4)
--- NOTE | 2020-07-21 06:49 | NUR ---
AROUND 0300 PT STATED HE WAS HAVING HARD TIME BREATHING. REPOSITIONED AND TURNED OXYGEN TO 6L, ATTACHED PULSE OX TO TELE MONITORED. TITRATED BACK TO 4L WHEN SAT WAS AT 96%, THEN DOWN TO 2L AT 0630, SAT WAS 94%. VSS, POC WITH IVF AND IVPB ANTIBIOTICS.
[2020-07-21 08:24] VITALS: BP 167/84
[2020-07-21 08:55] LABS: ALBUMIN 2.7 g/dL (3.4-5.0); DIRECT BILIRUBIN 0.2 mg/dL (<0.1-0.2); TOTAL BILIRUBIN 0.5 mg/dL (0.2-1.0); TOTAL PROTEIN 6.7 g/dL (6.4-8.2)
[2020-07-21 09:22] LABS: BE(vivo) 1.2 mmol/L (-2 to +3); HCO3 23.9 mmol/L (22.0-26.0); PO2 52.3 mmHg (80.0-100.0); pH 7.492 (7.360-7.450)
[2020-07-21 11:01] VITALS: BP 154/76
--- NOTE | 2020-07-21 13:46 | NUR ---
SW reviewed chart and spoke with nursing and attending physician. Pt remains in Enhanced Isolation due to COVID-19. Pt is afebrile and on IV abx/IV steroids. Pt transferred from room 363 to 349 due to increased O2 needs and may require bipap support. Pt has had convalescent plasma and may start course of Remdesivir. PATT is following to assist as needed with discharge planning.
[2020-07-21 16:22] VITALS: BP 146/62
--- NOTE | 2020-07-21 19:21 | NUR ---
PT CARE ASSUMED AT 0700, PT ALERT AND ORIENTED X4, DENIES CHEST PAIN, NAUSEA AND VOMITTING. PT IS ON 2L OF OXYGEN THIS AM, HAD TO INCREASED IT UP TO 6L DUE TO INCREASE SOB. DR. RAND CAME IN TO SEE PT, PUT IN XRAY AND ABG'S ORDERS. PT TRANSFER TO 349, DUE TO POSSIBLE BIPAP IF NEEDED. 1230 REASSESSMENT COMPLETED, PT STATED BREATHING SEEMS TO BE BETTER. PT CONTINUE TO BE ON 6L WITH HUMIDIFIER. PT DENIES ANY NEEDS YOLETTE. CALL LIGHT AND TABLE WITHIN REACH. CARE PROGRESSING TOWARDS POC.
[2020-07-21 20:44] VITALS: BP 158/77
--- NOTE | 2020-07-22 03:10 | NUR ---
Patient making slow progress towards outcome goals. Requires 6L oxygen /NC for sats in low 90's. Appetite improving some, ate most of dinner and took ensure supplement. Denies pain Vital signs and rhythm stable. High fall risks, fall precautions in place.
[2020-07-22 04:23] VITALS: BP 167/83
[2020-07-22 06:25] LABS: HEMATOCRIT 36.8 % (42.0-52.0); HEMOGLOBIN 11.9 gm/dL (14.0-18.0); MCH 27.4 pg (26.0-34.0); MCHC 32.3 g/dL (28.0-37.0); MCV 84.7 fL (80.0-100.0); RBC 4.34 mil/uL (4.50-6.00); RDW 14.9 % (10.5-14.5); WBC 8.3 thou/uL (4.0-11.0)
[2020-07-22 07:04] LABS: CREATININE 1.2 mg/dL (0.7-1.3); MAGNESIUM 2.1 mg/dL (1.8-2.4); POTASSIUM 3.2 mmol/L (3.5-5.1)
[2020-07-22 07:24] VITALS: BP 164/76
[2020-07-22 10:42] LABS: ALBUMIN 2.7 g/dL (3.4-5.0); DIRECT BILIRUBIN 0.3 mg/dL (<0.1-0.2); TOTAL BILIRUBIN 0.6 mg/dL (0.2-1.0); TOTAL PROTEIN 6.6 g/dL (6.4-8.2)
[2020-07-22 11:24] VITALS: BP 133/64
--- NOTE | 2020-07-22 11:44 | NUR ---
SW reviewed chart and spoke with nursing and attending physician. Pt is in Enhanced Isolation due to COVID-19. Pt is afebrile and requiring O2. PT is on IV abx and IV steroids. Course of Remdesivir has been started. Pt lives at home with his . Therapy is following to assist with recommendations for discharge needs. SW is following to assist as needed with discharge planning.
[2020-07-22 16:53] VITALS: BP 139/75
--- NOTE | 2020-07-22 19:30 | NUR ---
PT CARE ASSUMED AT 0700, ALERT AND ORIENTED X4, DENIES CHEST PAIN, NAUSEA AND VOMITTING. PT IS ON 3L OF O2 NOW, NO SIGNS OF DISTRESS NOTED. PT DENIES ANY RESOIRATORY DISTRESS. PT HAS BEEN UP IN THE CHAIR ALL DAY. APPETITE CONTINUES TO BE LOW. DENIES ANY NEED. FALL PRECAUTION IN PLACE. CALL LIGHT AND TABLE WITHIN REACH.
[2020-07-22 20:21] VITALS: BP 156/79
[2020-07-23 01:18] VITALS: BP 148/73
[2020-07-23 04:04] VITALS: BP 156/79
--- NOTE | 2020-07-23 04:43 | NUR ---
Pt. on 4L/NC and maintaining O2 sat from 92-96%. He does get short of breath with exertion and stated not feeling good/weak. Cont.on enhanced precaution. He has been afebrile. Voiding per urinal. Nicoer called to get an update on pt. He slept intermittently during the night.
[2020-07-23 05:52] LABS: HEMATOCRIT 37.7 % (42.0-52.0); HEMOGLOBIN 12.1 gm/dL (14.0-18.0); MCV 84.4 fL (80.0-100.0); RBC 4.47 mil/uL (4.50-6.00); RDW 15.1 % (10.5-14.5); WBC 10.1 thou/uL (4.0-11.0)
[2020-07-23 06:26] LABS: ALBUMIN 2.6 g/dL (3.4-5.0); DIRECT BILIRUBIN 0.2 mg/dL (<0.1-0.2); TOTAL BILIRUBIN 0.5 mg/dL (0.2-1.0); TOTAL PROTEIN 6.4 g/dL (6.4-8.2)
[2020-07-23 07:37] VITALS: BP 178/87
[2020-07-23 08:03] LABS: ALBUMIN 2.7 g/dL (3.4-5.0); CALCIUM 8.5 mg/dL (8.5-10.1); POTASSIUM 3.5 mmol/L (3.5-5.1); TOTAL BILIRUBIN 0.6 mg/dL (0.2-1.0); TOTAL PROTEIN 6.6 g/dL (6.4-8.2)
[2020-07-23 11:13] VITALS: BP 149/83
--- NOTE | 2020-07-23 13:52 | NUR ---
SW reviewed chart and spoke with nursing and attending physician. Pt is in Enhanced Isolation due to COVID-19. Pt is afebrile and requiring O2. PT is on IV abx and IV steroids. Course of Remdesivir has been started. Pt lives at home with his . Therapy is following to assist with recommendations for discharge needs. SW is following to assist as needed with discharge planning. It is not anticipated that pt will be medically stable to discharge over the weekend.
[2020-07-23 15:10] VITALS: BP 146/79
[2020-07-23 21:00] VITALS: BP 146/73
[2020-07-24 03:13] VITALS: BP 150/83
--- NOTE | 2020-07-24 03:15 | NUR ---
ASSUMED CARE FROM DAY SHIFT, PT UP IN CHAIR NO CONCERNS VOICED. LABOR ECONOMICS TEACHER SHOWS ST 101. DISCUSSED PLAN OF CARE , VERBALIZED UNDERSTANDING. PT RESTING WELL THROUGHOUT HOURLY ROUNDS.
[2020-07-24 04:06] LABS: HAV IgM AB (ANTI-HAV IgM) Negative (Negative); HEPATITIS B SURFACE AG Negative (Negative); HEPATITIS C VIRUS AB <0.1 (0.0-0.9)
[2020-07-24 06:47] LABS: ALBUMIN 2.6 g/dL (3.4-5.0); DIRECT BILIRUBIN 0.1 mg/dL (<0.1-0.2); TOTAL BILIRUBIN 0.5 mg/dL (0.2-1.0); TOTAL PROTEIN 6.4 g/dL (6.4-8.2)
[2020-07-24 07:33] VITALS: BP 150/88
--- NOTE | 2020-07-24 10:15 | NUR ---
discussed during prime time via phone call, pt + covid and remdesivir on hold rt abnormal labs.
[2020-07-24 11:21] LABS: ALBUMIN 2.7 g/dL (3.4-5.0); CALCIUM 8.2 mg/dL (8.5-10.1); POTASSIUM 4.2 mmol/L (3.5-5.1); TOTAL BILIRUBIN 0.6 mg/dL (0.2-1.0); TOTAL PROTEIN 6.1 g/dL (6.4-8.2)
[2020-07-24 11:36] VITALS: BP 149/74
[2020-07-24 15:06] VITALS: BP 124/70
[2020-07-24 15:07] VITALS: BP 124/70
[2020-07-24 20:06] VITALS: BP 137/65
[2020-07-25 04:29] LABS: ALBUMIN 2.5 g/dL (3.4-5.0); CALCIUM 8.4 mg/dL (8.5-10.1); POTASSIUM 4.2 mmol/L (3.5-5.1); TOTAL BILIRUBIN 0.5 mg/dL (0.2-1.0); TOTAL PROTEIN 5.9 g/dL (6.4-8.2)
[2020-07-25 04:37] LABS: ALBUMIN 2.5 g/dL (3.4-5.0); DIRECT BILIRUBIN 0.1 mg/dL (<0.1-0.2); TOTAL BILIRUBIN 0.5 mg/dL (0.2-1.0); TOTAL PROTEIN 6.2 g/dL (6.4-8.2)
[2020-07-25 04:55] VITALS: BP 149/75
--- NOTE | 2020-07-25 07:21 | NUR ---
ASSUMED CARE AT 1900, ASSESSMENTS COMPLETED. PT DENIED PAIN, NAUSEA, OR SOB. SATTING WELL ON 5L O2, LUNGS CLEAR/COARSE. UTILIZED URINAL OVERNIGHT. SR ON TELE OVERNIGHT. NO OTHER CONCERNS, SHIFT REPORT GIVEN AT 0700.
[2020-07-25 07:35] VITALS: BP 133/72
--- NOTE | 2020-07-25 10:08 | NUR ---
discussed during prime time via phone call, remdesivir restarted, dose # 4, still requiring o2 4L/nc. will cont following as needed for dc needs.
[2020-07-25 11:12] VITALS: BP 137/76
--- NOTE | 2020-07-25 15:35 | NUR ---
PT WITH FALL PREC IN PLACE///OPENS EYES AT TIMES DOES NOT FOLLOW COMMANDS..
--- NOTE | 2020-07-25 15:37 | NUR ---
PT ON 4L NC...REPORTS SMALL IMPROVEMENT IN DYSPNEA...WILL MONITOR CLOSELY
[2020-07-25 16:00] VITALS: BP 129/69
[2020-07-25 19:36] VITALS: BP 122/60
--- NOTE | 2020-07-25 19:47 | NUR ---
PT APPEARS STRONGER TODAY...BETTER SPIRITS...SAT IN CHAIR FROM [phone]...
[2020-07-25 19:51] VITALS: BP 115/73
[2020-07-26 05:35] VITALS: BP 139/80
[2020-07-26 06:03] LABS: ALBUMIN 2.4 g/dL (3.4-5.0); CALCIUM 8.1 mg/dL (8.5-10.1); POTASSIUM 3.6 mmol/L (3.5-5.1); TOTAL BILIRUBIN 0.5 mg/dL (0.2-1.0); TOTAL PROTEIN 5.9 g/dL (6.4-8.2)
[2020-07-26 07:06] LABS: EBV DNA log10 PCR 3.676 (())
[2020-07-26 07:26] VITALS: BP 137/81
--- NOTE | 2020-07-26 07:33 | NUR ---
ASSUMED CARE AT 1900. PT DENIED PAIN OR NAUSEA. REPORTED BREATHING IMPROVED, SATTING WELL ON 4L. UP IN CHAIR UNTIL ABOUT 2200, THEN TRANSFERRED TO BED. SR ON TELE IN 60'S, OCCASIONALLY DIPPING TO 50'S. NO OTHER CONCERNS, SHIFT REPORT GIVEN AT 0700.
[2020-07-26 12:13] VITALS: BP 132/78
--- NOTE | 2020-07-26 16:21 | NUR ---
SW reviewed chart and spoke with nursing and attending physician. Pt is in Enhanced Isolation due to COVID-19. Pt is s/p plasma and Remdesivir. PT is afebrile and on 3L of O2. Pt is on IV Abx and IV steroids. Pt is working with therapy. Pt's goal is to return home. SW is following to assist as needed with discharge planning.
[2020-07-26 17:21] VITALS: BP 131/70
[2020-07-26 19:11] VITALS: BP 138/74
[2020-07-27 03:50] VITALS: BP 155/83
[2020-07-27 07:00] VITALS: BP 134/76
[2020-07-27 08:12] LABS: HEMATOCRIT 37.9 % (42.0-52.0); HEMOGLOBIN 12.2 gm/dL (14.0-18.0); MCH 27.7 pg (26.0-34.0); MCHC 32.2 g/dL (28.0-37.0); MCV 86.1 fL (80.0-100.0); RBC 4.4 mil/uL (4.50-6.00); RDW 15.1 % (10.5-14.5); WBC 8.6 thou/uL (4.0-11.0)
[2020-07-27 08:16] LABS: CALCIUM 8.5 mg/dL (8.5-10.1); CREATININE 1.2 mg/dL (0.7-1.3); MAGNESIUM 2.3 mg/dL (1.8-2.4); POTASSIUM 3.5 mmol/L (3.5-5.1)
[2020-07-27 11:02] VITALS: BP 96/59
--- NOTE | 2020-07-27 13:57 | NUR ---
PATT reviewed chart and spoke with nursing and attending physician. Pt is in Enhanced Isolation due to COVID-19. Repeat test ordered today. Pt is afebrile and on 1L of O2. Pt to be taken off O2. Pt is on IV steroids. Discharge home with HH is anticipated in 1-2 days. PATT placed call to pt's room. Line was busy. PATT spoke with pt's dtr, Stanislaw, via phone. Discussed discharge needs: HH and possible home O2. Provided options for HH agencies. No preference voiced. PATT confirmed pt's home address and phone number. Pt's family is hoping that pt will not need home O2. Pt will need rest/exercise oximetry prior to discharge. PATT faxed HH referral to [facility] for review. Notified HH liaison of new referral. PATT is following to assist as needed with discharge planning.
[2020-07-27 15:10] VITALS: BP 111/59
--- NOTE | 2020-07-27 16:46 | NUR ---
ASSUMED CARE APPROX 0700. PT ALERT AND ORIENTED X4. ASSESSMENTS CHARTED AND VSS. PT AFEBRILE THIS SHIFT. STARTED ON 1L THIS AM AND NOW ON ROOM AIR W/O DISTRESS NOTED. 02 SATS WNL. SR TO SB ON TELE MONITOR. PT DENIES ACUTE PAIN. COVID SWABBED OBTAINED AND SENT TO LAB. RESULTS PENDING. PT PROGRESSING TOWARDS PLAN OF CARE GOALS. WILL CONTINUE TO MONITOR.
[2020-07-27 19:35] VITALS: BP 115/61
--- NOTE | 2020-07-28 00:27 | NUR ---
ASSUMED CARE OF PT AT 1900HRS. PT AOX4 AND LETS NEEDS BE KNOWN. FALL PRECAUTION IN PLACE. ASSESSMENT CHARTED. PT IS SR ON TELE. PT CURRENTLY ON RA. PT WAS TESTED FOR COVID-19 ON 07/27/20 AND IS STILL POSITIVE. PT DENIED PAIN, NAUSEA, OR SOA. PT WAS ABLE TO GET COMFORTABLE AND SLEEP PART OF THE SHIFT. VSS AND NO S/S OF ACUTE DISTRESS. PT IS PROGRESSING TOWARDS DC GOALS. WILL CONTINUE TO MONITOR.
[2020-07-28 03:57] VITALS: BP 146/69
[2020-07-28 06:12] LABS: HEMATOCRIT 39.5 % (42.0-52.0); HEMOGLOBIN 12.7 gm/dL (14.0-18.0); MCH 27.5 pg (26.0-34.0); MCHC 32.1 g/dL (28.0-37.0); MCV 85.7 fL (80.0-100.0); RBC 4.61 mil/uL (4.50-6.00); RDW 15.1 % (10.5-14.5)
[2020-07-28 06:22] LABS: ALBUMIN 2.7 g/dL (3.4-5.0); DIRECT BILIRUBIN 0.2 mg/dL (<0.1-0.2); TOTAL BILIRUBIN 0.6 mg/dL (0.2-1.0)
[2020-07-28 06:25] LABS: CALCIUM 8.6 mg/dL (8.5-10.1); CREATININE 1.3 mg/dL (0.7-1.3); MAGNESIUM 2.2 mg/dL (1.8-2.4); POTASSIUM 3.6 mmol/L (3.5-5.1)
[2020-07-28 07:05] VITALS: BP 134/67
[2020-07-28] MEDS ORDERED: PREDNISONE 10 M10 M1 PO (10:32)
[2020-07-28 10:40] VITALS: BP 134/67
[2020-07-28 10:45] VITALS: BP 155/64
--- NOTE | 2020-07-28 11:24 | NUR ---
DISCHARGE NOTE: SW reviewed chart and spoke with nursing and attending physician. Pt is in Enhanced Isolation due to COVID-19. Repeat COVID test from yesterday was positive. Pt is off O2 and is medically stable for discharge home today with HH services. SW faxed finalized discharge orders/summary to [facility] and notified liaison of pt's discharge. Contact info for HH placed in pt's discharge summary. SW placed call to pt's room. No answer. SW spoke with pt's regarding discharge. Pt's dtr, Stanislaw, to provide transportation home this afternoon. Stanislaw has coordinated discharge time with pt's nurse. No additional SW needs identified at this time, but is available to assist should needs arise.
--- NOTE | 2020-07-28 11:32 | NUR ---
ASSUMED CARE APPROX 0700. PT ALERT AND ORIENTED X4. ASSESSMENTS CHARTED AND VSS. PT AFEBRILE. ON ROOM AIR W/O SIGNS OF DISTRESS NOTED. SR ON TELE MONITOR. PT TO BE DISCHARGED TODAY. PT'S DTR, DIANE, INFORMED. STATES THAT SHE WILL BE HERE TO PICK HIM UP AROUND 1300.
[2020-07-28 11:39] VITALS: BP 134/67
[2020-07-28 11:45] VITALS: BP 134/67
== END 2020-07-28 13:00 | disposition home health service (06) | DRG 177 ==
LOC: ER 11:45 → 3W 16:22 → EROBS 16:22 → 3W 18:49
PROVIDERS: Emergency Medicine; Internal Medicine; Nurse Practitioner; Pediatrics; Specialist; ADMIT Hospitalist; ATTEND Hospitalist
PROC: XW13325 Transfusion of Convalescent Plasma (Nonautologous) into Peripheral Vein, Percutaneous Approach, New Technology Group 5 (ICD-10-PCS; principal; 2020-07-18)
PROC: XW033E5 Introduction of Remdesivir Anti-infective into Peripheral Vein, Percutaneous Approach, New Technology Group 5 (ICD-10-PCS; 2020-07-21)
DX: U07.1 COVID-19 (principal); J96.01 Acute respiratory failure with hypoxia; J12.9 Viral pneumonia, unspecified; E43 Unspecified severe protein-calorie malnutrition; N17.9 Acute kidney failure, unspecified; I10 Essential (primary) hypertension; I25.10 Atherosclerotic heart disease of native coronary artery without angina pectoris; G89.29 Other chronic pain; M54.9 Dorsalgia, unspecified; K59.00 Constipation, unspecified; N40.0 Benign prostatic hyperplasia without lower urinary tract symptoms; R74.0 Nonspecific elevation of levels of transaminase and lactic acid dehydrogenase [LDH]; K75.9 Inflammatory liver disease, unspecified; E87.6 Hypokalemia; K76.0 Fatty (change of) liver, not elsewhere classified; E78.5 Hyperlipidemia, unspecified; I25.2 Old myocardial infarction; Z95.5 Presence of coronary angioplasty implant and graft; Z86.73 Personal history of transient ischemic attack (TIA), and cerebral infarction without residual deficits; Z88.8 Allergy status to other drugs, medicaments and biological substances; Z87.891 Personal history of nicotine dependence; Z82.3 Family history of stroke; Z80.1 Family history of malignant neoplasm of trachea, bronchus and lung; Z82.49 Family history of ischemic heart disease and other diseases of the circulatory system; Z80.3 Family history of malignant neoplasm of breast; Z68.33 Body mass index [BMI] 33.0-33.9, adult; Z99.81 Dependence on supplemental oxygen; Z79.82 Long term (current) use of aspirin; Z79.899 Other long term (current) drug therapy; Z86.010 Personal history of colon polyps
CPT/HCPCS: 10879

== ENCOUNTER → 2020-11-12 | Outpatient (CLI) | payer OTHER ==
[~2020-11-12] MED LIST changes: +PREDNISONE 10 M10 M1 PO
== END ==
LOC: SJCVC 16:19
PROVIDERS: ATTEND Internal Medicine Cardiovascular Disease
DX: R94.31 Abnormal electrocardiogram [ECG] [EKG] (principal); I25.10 Atherosclerotic heart disease of native coronary artery without angina pectoris; I47.2 Ventricular tachycardia; E78.00 Pure hypercholesterolemia, unspecified; I10 Essential (primary) hypertension; R60.9 Edema, unspecified

== ENCOUNTER → 2020-12-02 | Outpatient (CLI) | payer OTHER | LOC: SJCVCIMAG 11-26 11:42 | PROVIDERS: ATTEND Internal Medicine Cardiovascular Disease | DX: I21.4 Non-ST elevation (NSTEMI) myocardial infarction (principal); I25.10 Atherosclerotic heart disease of native coronary artery without angina pectoris; I25.89 Other forms of chronic ischemic heart disease; I10 Essential (primary) hypertension; E78.00 Pure hypercholesterolemia, unspecified; R60.9 Edema, unspecified; I63.9 Cerebral infarction, unspecified; I77.9 Disorder of arteries and arterioles, unspecified; Z98.890 Other specified postprocedural states; Z88.8 Allergy status to other drugs, medicaments and biological substances; Z79.82 Long term (current) use of aspirin; Z79.899 Other long term (current) drug therapy; Z86.16 Personal history of COVID-19; Z87.891 Personal history of nicotine dependence; Z82.49 Family history of ischemic heart disease and other diseases of the circulatory system ==

== ENCOUNTER → 2021-04-20 | Outpatient (CLI) | payer OTHER | LOC: SJCVC 11:14 | PROVIDERS: ATTEND Internal Medicine Cardiovascular Disease | DX: E78.00 Pure hypercholesterolemia, unspecified (principal); I25.10 Atherosclerotic heart disease of native coronary artery without angina pectoris; I65.23 Occlusion and stenosis of bilateral carotid arteries; Z86.16 Personal history of COVID-19; K92.1 Melena; I25.2 Old myocardial infarction; Z88.8 Allergy status to other drugs, medicaments and biological substances; Z95.818 Presence of other cardiac implants and grafts; Z87.891 Personal history of nicotine dependence; Z72.89 Other problems related to lifestyle ==

== ENCOUNTER → 2021-06-01 | Outpatient (CLI) | payer OTHER | LOC: SJCVC 13:45 | PROVIDERS: ATTEND Internal Medicine Cardiovascular Disease | DX: R94.31 Abnormal electrocardiogram [ECG] [EKG] (principal); I25.10 Atherosclerotic heart disease of native coronary artery without angina pectoris; I10 Essential (primary) hypertension; E78.00 Pure hypercholesterolemia, unspecified; R60.9 Edema, unspecified; I63.9 Cerebral infarction, unspecified; I77.9 Disorder of arteries and arterioles, unspecified; Z88.8 Allergy status to other drugs, medicaments and biological substances; Z79.82 Long term (current) use of aspirin; Z79.899 Other long term (current) drug therapy; Z87.891 Personal history of nicotine dependence; Z72.89 Other problems related to lifestyle; Z86.16 Personal history of COVID-19; Z86.73 Personal history of transient ischemic attack (TIA), and cerebral infarction without residual deficits; Z95.828 Presence of other vascular implants and grafts; Z98.890 Other specified postprocedural states ==

== ENCOUNTER → 2021-06-06 | Outpatient (CLI) | payer OTHER | LOC: SJCVCIMAG 13:45 | PROVIDERS: ATTEND Internal Medicine Cardiovascular Disease | DX: I65.23 Occlusion and stenosis of bilateral carotid arteries (principal) ==

== ENCOUNTER → 2021-12-02 | Outpatient (CLI) | payer OTHER | LOC: SJCVCIMAG 08:40 | PROVIDERS: ATTEND Internal Medicine Cardiovascular Disease | DX: R94.31 Abnormal electrocardiogram [ECG] [EKG] (principal); I11.9 Hypertensive heart disease without heart failure; I25.10 Atherosclerotic heart disease of native coronary artery without angina pectoris; E78.00 Pure hypercholesterolemia, unspecified; R60.9 Edema, unspecified; I63.9 Cerebral infarction, unspecified; I65.29 Occlusion and stenosis of unspecified carotid artery; Z88.8 Allergy status to other drugs, medicaments and biological substances; Z79.82 Long term (current) use of aspirin; Z79.899 Other long term (current) drug therapy; Z87.891 Personal history of nicotine dependence; Z72.89 Other problems related to lifestyle; Z86.16 Personal history of COVID-19; Z82.49 Family history of ischemic heart disease and other diseases of the circulatory system ==